=== PATIENT | female | born 1960 | race Caucasian/White ===

== ENCOUNTER 2024-09-11 19:46 | Emergency (ER) | payer MEDICARE, SELFPAY ==
--- OUTSIDE RECORDS SUMMARY | 2024-09-11 19:48 | XMS_ITS | Clinical Summary ---
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
--- OUTSIDE RECORDS SUMMARY | 2024-09-11 19:48 | XMS_ITS | Referral Summary ---
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
--- OUTSIDE RECORDS SUMMARY | 2024-09-11 19:49 | XMS_ITS | Clinical Summary ---
Author Organization [facility] Address [place], [place] [address] Care Team Providers Care Ship Laborer Name Role Phone Armand Abel MD Unavailable [phone] Benjamin rGeenfield MD Primary Care Provider [phone] Dennis Miranda MD Unavailable [phone] Allergies No known active allergies Medications ovoihsqk-wkd-sbfp -FA-lutein (Centrum Silver Women) 8 mg iron-400 mcg-300 mcg tab Take 1 Tablet by mouth once daily. Active BIOTIN ORAL Take 2 Tablets by mouth once daily. Active cetirizine (ZYRTEC) 10 mg tabletIndications :Urticaria TAKE 1 TABLET BY MOUTH ONCE DAILY. FOR ALLERGIES. 90 Tablet 3 07/19/20 22 Active hydrocortisone 1 % creamIndications: Encounter for cardioversion procedure Apply topically to affected area(s) 4 times daily if needed (cardioversio n procedure). 03/11/20 24 Active rosuvastatin (CRESTOR) 10 mg tabletIndications :HDL lipoprotein deficiency Take 1 Tablet (10 mg) by mouth once daily. 90 Tablet 3 04/22/20 24 Active rivaroxaban (Xarelto) 20 mg tabletIndications :New onset a-fib (HC) TAKE 1 TABLET BY MOUTH EVERY DAY WITH EVENING MEAL 90 Tablet 2 05/04/20 24 Active methIMAzole (TAPAZOLE) 10 mg tabletIndications :Graves disease Take 2 tablets in the morning and 2 tablets night. 360 Tablet 3 06/21/20 24 Active albuterol HFA (PRO-AIR; VENTOLIN; PROVENTIL) 90 mcg/actuation inhalerIndication s:Mild intermittent asthma in adult without complication,Bron chitis Inhale 1-2 Puffs by mouth every 4 hours if needed for Shortness of Breath 1st choice. 18 g 3 07/20/20 24 Active amLODIPine (NORVASC) 10 mg tabletIndications :Primary hypertension Take 1 Tablet (10 mg) by mouth once daily. For blood pressure. 90 Tablet 3 07/20/20 24 Active atenoloL (TENORMIN) 25 mg tabletIndications :Hyperthyroidism Take 1 Tablet (25 mg) by mouth once daily. 90 Tablet 3 07/20/20 24 Active famotidine (PEPCID) 20 mg tabletIndications :GERD without esophagitis TAKE 1 TABLET BY MOUTH ONCE DAILY. FOR REFLUX. 90 Tablet 3 07/20/20 24 Active furosemide (LASIX) 20 mg tabletIndications :Primary hypertension TAKE 1 TABLET BY MOUTH ONCE DAILY. FOR BLOOD PRESSURE/FLUI D. 90 Tablet 3 07/20/20 24 Active losartan (COZAAR) 100 mg tabletIndications :Primary hypertension Take 1 Tablet (100 mg) by mouth once daily. For blood pressure. 90 Tablet 3 07/20/20 24 Active montelukast (SINGULAIR) 10 mg tabletIndications :Mild intermittent asthma in adult without complication TAKE 1 TABLET BY MOUTH AT BEDTIME. FOR ALLERGIES AND ASTHMA. 90 Tablet 3 07/20/20 24 Active potassium chloride (K-TAB) 10 mEq extended-release tabletIndications :Primary hypertension TAKE 2 TABLETS BY MOUTH ONCE DAILY WITH A MEAL. FOR POTASSIUM DUE TO MEDS. 180 Tablet 3 07/20/20 24 Active triamcinolone (ARISTOCORT; KENALOG) 0.1 % creamIndications: Rash Apply topically to affected area(s) two times daily. 80 g 07/20/20 24 Active triamterene-hydro chlorothiazide, 37.5-25 mg, (MAXZIDE-25) 37.5-25 mg tabletIndications :Primary hypertension Take 0.5 Tablets by mouth once daily in the morning. For blood pressure. 45 Tablet 3 07/20/20 24 Active fluticasone propionate (FLOVENT) 110 mcg/Actuation inhalerIndication s:Mild intermittent asthma without complication Inhale 1 Puff by mouth two times daily. 36 g 1 07/24/20 24 Active benzonatate (TESSALON) 200 mg capsuleIndication s:Bronchitis Take 1 Capsule (200 mg) by mouth 3 times daily if needed for Cough. 21 Capsule 08/08/20 24 Active CPAPIndications:O bstructive sleep apnea RESMED CPAP (E0601) machine for home use at pressure: 5-15cmw, Choice of mask (A7030 or A7034) w/full face cushion (A7031) x1/mo, nasal cushion (A7032) x2/mo, or nasal pillows (A7033) x 2/mo; Length of Need: 99 months; Frequency of use: Daily 1 Each 09/09/19 25 Active CPAPIndications:O bstructive sleep apnea RESMED CPAP (E0601) machine for home use at pressure: 5-15cmw, Choice of mask (A7030 or A7034) w/full face cushion (A7031) x1/mo, nasal cushion (A7032) x2/mo, or nasal pillows (A7033) x 2/mo; Length of Need: 99 months; Frequency of use: Daily 1 Each 06/08/20 24 025 Discontinu ed(Reorder (E-cancel not sent)) predniSONE (DELTASONE) 20 mg tabletIndications :Bronchitis Take 1 Tablet (20 mg) by mouth once daily with a meal for 5 days. 5 Tablet 08/08/20 24 024 predniSONE (DELTASONE) 20 mg tabletIndications :Bronchitis Take 1 Tablet (20 mg) by mouth once daily with a meal for 5 days. 5 Tablet 08/08/20 24 024 Active Problems Problem Noted Date Diagnosed Date PAF (paroxysmal atrial fibrillation) 02/16/2024 Overview (02/16/2024): January 2024: New atrial fibrillation. Started on xarleto and continued on Atenolol. Elevated serum creatinine 07/22/2021 Overview (07/22/2021): July 2021: Creatinine: 1.24, GFR 44. Hyperthyroidism 06/03/2020 Overview (09/04/2022): May 2020: hyperthyroidism with thyroid enlargement on left side. Saw Dr. Abel. - 24-hour uptake: 63.7% (Normal range: 10-35%). Diffuse radiotracer uptake throughout the thyroid gland suspicious for Graves' disease without hot/cold nodule- no indication for nodule biopsy, since the nodules are all part of the overactive gland -start methimazole 06/13/2020 Results for PATY NEIL ( ) as of 07/22/2021 11:46 Ref. Range 01/03/2021 11:27 04/17/2021 11:23 07/19/2021 17:11 TSH Latest Ref Range: 0.35 - 4.94 uIU/mL <0.01 (L) 2.31 <0.01 (L) T4,FREE Latest Ref Range: 0.70 - 1.80 ng/dL 2.10 (H) 0.63 (L). Methimazole reduced from 30 to 20 mg per day 2.18 (H). Methimazole raised back to 30 mg per day T3,TOTAL Latest Ref Range: 35 - 193 ng/dL 201 (H) 04/2022 on methimazole 30 mg daily. TSH (uIU/mL) Date Value 05/07/2022 5.17 (H) dose reduced to 10 mg twice daily Enlarged thyroid 06/03/2020 Overview (06/03/2020): May 2020: enlarged left side of thyroid. SID 04/29/2006 AHI-136 09/23/2014 Elevated fasting blood sugar 08/18/2014 Overview (07/22/2024): July 2014: Fasting 116, August 2015: Fasting blood sugar 119. Pre-diabetes class again ordered ( was ordered in 2013 and Patient did not go). Jun 2022: Fasting 124. Needs recheck. July 2022: Repeat Fasting 131 and Hemoglobin A1c 5.4. So monitor. Jun 2023: Fasting 133, Hemoglobin A1c 5.6. July 2024: Fasting 133, Hemoglobin 5.6. Hypokalemia 02/23/2011 Pes planus 03/10/2010 Iron deficiency anemia secondary to blood loss ( chronic) 02/01/2010 Overview (06/03/2020): Menorrhagia- 01/26 Hemoglobin low- studies suggest iron deficiency, continue iron supplement recommended Recheck 6 months May 2020: Hemoglobin 10.4, ferritin high. Mild intermittent asthma without complication Overview (08/02/2018): 07/06/2011 ATAQ/Asthma Action plan completed. Continue flovent PRN and albuterol PRN. 04/02/2012 ATAQ/Asthma Action plan completed. 10/29/2012 ATAQ/Asthma Action plan completed. 07/31/2013 ATAQ/Asthma Action plan completed. July 2018: ATAQ 0. removing flovent as she is not using. 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 Starting Weight [employer] Sep 2015. Primary hypertension Overview (07/24/2016): Jul 2016: changed hydrochlorothiazide 12.5mg twice daily to hydrochlorothiazide/triamterene combo twice daily. PAIN IN JOINT, ANKLE/FOOT GERD without esophagitis Overview (08/01/2013): endoscopy Apr 2006. Mar 2012: try to taper off nexium and add famotidine if possible, restart nexium if symptoms not controlled. 2013: needed to go back to nexium, famotidine, but plans to try taper again, may need PA for nexium vs other proton pump inhibitor. Resolved Problems Problem Noted Date Diagnosed Date Resolved Date CHEST PAIN 04/05/2001 03/28/2006 Headache(784.0) 12/27/2006 Encounters Date Type Department Care Team Description 09/11/2024 6:00 PM PHARMACY PICKING TECH Ancillary Procedure [facility] [address] [facility] [address] [place] [address] Arrived 09/11/2024 5:55 PM PHARMACY PICKING TECH Ancillary Procedure [facility] [address] [facility] [address] [place] [address] Arrived 09/11/2024 5:05 PM PHARMACY PICKING TECH Office Visit [facility] [address] [facility] [address] [place] [address] Debi Gamboa NP Abdominal Pain (lower abdominal pain on right side x5days, was checked for a uti x3days. pain does wrap around to the back as well. Pain is a constant ache that is worsening, since her last visit she is now having constipation, denies blood in stool. ) 09/11/2024 Travel 09/09/2024 2:00 PM PHARMACY PICKING TECH Ancillary Procedure [facility] [address] [place] [address] Arrived 09/09/2024 1:00 PM PHARMACY PICKING TECH Office Visit [facility] [address] [place] [address] Kuldip Saul MD Sleep Follow-up 09/08/2024 9:40 AM PHARMACY PICKING TECH Office Visit [facility] [address] [place] [address] Vinicio Zapata MD Back Pain 09/08/2024 Travel 09/07/2024 Travel 09/04/2024 12:35 PM PHARMACY PICKING TECH Office Visit [facility] [address] [place] [address] Benjamin Greenfield MD Preoperative Exam (DOS: 10/01/2024 [facility]/Thyroidecto for diagnosis of Graves Disease/Dr Matty Zimmerman) 09/04/2024 Travel 08/31/2024 Travel 08/08/2024 9:10 AM PHARMACY PICKING TECH Office Visit [facility] [address] [facility] [address] [place] [address] Caitlyn Call PA Cough 08/08/2024 Orders Only [facility] [address] [place] [phone] Caitlyn Call PA <No scans attached> 08/08/2024 Telephone [facility] [address] [place] [address] Caitlyn Call PA Medication Management (predniSONE ) 08/08/2024 Travel 08/06/2024 12:20 PM PHARMACY PICKING TECH Telemedicine [facility] [address] [place] [address] Maile Del Valle MD Cough; Acid Indigestion; Telehealth 08/05/2024 Travel 07/27/2024 Orders Only [facility] [address] [place] [address] Benjamin Greenfield MD Lab 07/24/2024 Telephone [facility] [address] [place] [phone] Matty Zimmerman MD Surgery Scheduled (Total thyroidectomy) 07/23/2024 9:20 AM PHARMACY PICKING TECH Office Visit [facility] [address] [place] [address] Matty Zimmerman MD Consult (Enlarged thyroid, nodules, Graves) 07/23/2024 Travel 07/21/2024 Telephone [facility] [address] [place] [address] Benjamin Greenfield MD Medication Management (fluticasone propionate (FLOVENT DISKUS) 100 mcg/actuation inhaler/) 07/20/2024 1:40 PM PHARMACY PICKING TECH Ancillary Procedure [facility] [address] [place] [address] 07/20/2024 12:35 PM PHARMACY PICKING TECH Office Visit [facility] [address] [place] [address] Benjamin Greenfield MD Medicare WELCOME Visit (AGE 63) 07/19/2024 Travel 07/18/2024 Travel 06/21/[address] [facility] [address] [place] [address] Armand Abel MD Results 06/21/2024 Orders Only [facility] [address] [place] [address] Armand Abel MD <No scans attached> 06/18/2024 8:20 AM CDT Office Visit [facility] [address] [place] [address] Armand Abel MD Follow Up (3 months graves disease ) 06/18/2024 Travel 06/13/2024 Travel from Last 3 Months Immunizations Name Administration Dates Next Due AMB Influenza, IIV4 PF (=>6 mos Flulaval,Fluzone Fluarix)(Flu Clinic Only) 06/19/2018,05/17/2017 COVID-19 vaccine (Moderna 100mcg/0.5mL) PF, MDV 06/20/2021 COVID-19 vaccine (Moderna 50mcg/0.5mL) 12YO+ BIVALENT PF, MDV 07/09/2022 INFLUENZA, IIV3 PF (AGE >= 6 MO) 05/18/2024 Influenza A (H1N1), Inactiva fermin (Age >=3 Years) 09/22/2009 Influenza, IIV3 (Age >=3 years) 05/13/20 14,05/14/2013,05/08/2012,2010,05/26/2010,06/24/2006,05/19/2003 Influenza, IIV4 05/20/2023, 2,04/20/2021,2019,05/15/2019,05/17/2017,05/29/2016,0 05/10/2015 Pneumococcal Conj 20-valent (Prevnar 20) 08/02/2023 Tdap 01/19/2010 Zoster (Shingrix-RZV, recombinant) 12/15/2019, Family History Medical History Relation Name Comments Heart Disease Brother 1 Heart Disease Brother 2 Heart Disease Mother bypass in 60's 2nd MS in 80's Genetic Other 1 glaucoma - fath er~lazy eye - sister Genetic Other 2 mother MS in he r 60's, HTN~brother CAD, stent placement age 42~sister DM2, HTN ~glaucoma - father~lazy eye - sister Genetic Other 3 mother MS in he r 60's, HTN~Father had RA, daughter had JRA~brother CAD, stent placement age 42~sister DM2, HTN ~glaucoma - father~lazy eye - sister Heart Disease Sister 1 Heart Disease Sister 2 Graves' disease Sister 3 Graves' disease Sister 4 Anesthesia Problem No Family History Blood Disease No Family History Cancer-breast No Family History Relation Name Status Comments Brother 1 Brother 2 Alive Mother Other 1 Other 2 Other 3 Sister 1 Sister 2 Alive Sister 3 Alive Sister 4 Alive Social History Tobacco Use Types Packs/Day Years Used Date Smoking Tobacco: Never Passive Smoke Exposure: Never Smokeless Tobacco: Never Tobacco Cessation:Counseling Given: Not Answered Alcohol Use Standard Drinks/Week Comments No 0 (1 standard drink = 0.6 oz pur e alcohol) PHQ-2 Answer Date Recorded PHQ-2 TOTAL SCORE 0 07/20/2024 Social Connections Answer Date Recorded Do you often feel lonely or isolated from those around you? 0 02/14/2024 Financial Resource Strain Answer Date R ecorded Difficulty of Paying Living Expenses 3 02/14/2024 Difficulty of Paying Living Expenses Not on file 02/14/2024 Food Insecurity Answer Date Recorded Do you worry your food will run out before you are able to buy more? 1 02/14/2024 Transportation Needs Answer Date Record ed Does lack of transportation keep you from medica l appointments? 1 02/14/2024 Does lack of transportation keep you from work, meetings or getting things that you need? 1 02/14/2024 Housing Stability Answer Date Recorded What is your housing situation today? 1 02/14/2024 Interpersonal Safety Answer Date Record ed Are you being hit, kicked, p ushed or yelled at (see row info)? No 03/11/2024 Interpersonal Safety Abuse 12 - 18 Not on file 03/11/2024 Interpersonal Safety Ambulatory Vulnerability No t on file 03/11/2024 Utilities Answer Date Recorded Do you have trouble paying f or utilities (for example, heat, electricity, water, phone)? 1 02/14/2024 Comments No Sex and Gender Information Value Date Recorded Sex Assigned at Not on file Legal Sex Female 5:38 AM PHARMACY PICKING TECH Gender Identity Not on file Sexual Orientation Not on file Obstetrics History Last Filed Vital Signs Vital Sign Reading Time Taken Comments Blood Pressure 140/63 09/11/2024 5:25 PM PHARMACY PICKING TECH Pulse 99 09/11/2024 5:25 PM PHARMACY PICKING TECH Temperature 36.2 C (97.1 F) 09/11/2024 5:25 PM PHARMACY PICKING TECH Respiratory Rate 22 09/11/2024 5:25 PM PHARMACY PICKING TECH Oxygen Saturation 96% 09/11/2024 5:25 PM PHARMACY PICKING TECH Inhaled Oxygen Concentration - - Weight 131.6 kg (290 lb 3.2 oz) 025 12:53 PM PHARMACY PICKING TECH Height 161.4 cm (5' 3.54) 09/09/2024 1 2:53 PM PHARMACY PICKING TECH Body Mass Index 50.54 09/09/2024 12:53 PM PHARMACY PICKING TECH Plan of Treatment Upcoming Encounters Date Type Department Care Team (Latest Contact Info) Description 10/01/2024 7:20 AM PHARMACY PICKING TECH Hospital Encounter [facility] [address] [place] [address] Matty Zimmerman MD [address] [facility] [address] [place] [address] 10/01/2024 7:20 AM PHARMACY PICKING TECH - 10/01/2024 9:14 AM PHARMACY PICKING TECH Surgery [facility] [address] [place] [address] Matty Zimmerman MD [address] [facility] [address] [facility] [address] [place], [place] [id number] Total thyroidectomy 11/05/2024 9:10 AM CDT Office Visit [facility] [address] [facility] [address] [place], [place] [phone] Armand Abel MD [address] [facility] [address] [facility] [address] [place] [address] Scheduled Procedures Name Priority Associated Diagnoses Date/Ti me THYROIDECTOMY Tier 4 Graves disease 10/01/2024 7:20 AM PHARMACY PICKING TECH Health Maintenance Due Date Last Done Comments RSV vaccine for adults or (1 - Risk 60-74 years 1-dose series) 2019 Tetanus booster 01/20/2020 01/19/2010 DEXA/DXA scan for age 65+ 2024 Pap test for age 21-65 10/07/2024 , 10/07/2019, 11/13/2002, Additional history exists Mammogram for age 45-75 07/20/2025 07/20/20, 07/18/2023, 05/11/2021, Additional history exists Fecal testing non-DNA (FIT,FOBT,iFOBT) for age 45-75 07/21/2025 07/21/2024, 07/18/2023, 07/10/2022, Additional history exists Medicare Wellness for age 65+ 07/21/2025 07/20/2024 Depression screening for age 12+ 07/24/2025 07/24/2024, 07/23/2024, 07/21/2024, Additional history exists HIV for age 15-65 2025 Postponed from 1974 (Patient discretion) BMI (ht and wt on same day) for age 18+ 09/09/2025 09/09/2024, 09/08/2024, 07/20/2024, Additional history exists Lipids for age 45-75 07/20/2029 07/20/2024, 07/18/2023, 06/01/2020, Additional history exists Tdap Completed 01/19/2010 Hepatitis C screening for age 18-79 Completed 06/30/2019 Zoster (shingles) series for age 50+ Completed 12/15/2019, 06/30/2019 Pneumococcal series for age 50+ Completed 08/02/2023 COVID-19 vaccine series Completed 05/18/20, 08/02/2023, 07/09/2022, Additional history exists Influenza for age 65+ Completed 05/18/2024 , 05/20/2023, 05/07/2022, Additional history exists Procedures Procedure Name Priority Date/Time Associated Diagnosis Comments XR ABDOMEN 2 VIEW FLAT AND UPRIGHT OR DECUBITUS STAT 09/11/2024 6:25 PM PHARMACY PICKING TECH Flank pain Abdominal pain, RLQ (right lower quadrant) XR SPINE LUMBAR 3 VIEWS STAT 09/11/2024 6:24 PM PHARMACY PICKING TECH Flank pain Abdominal pain, RLQ (right lower quadrant) AK BLOOD COUNT COMPLETE AUTO&AUTO DIFRNTL WBC Routine 09/11/2024 6:01 PM PHARMACY PICKING TECH Flank pain Abdominal pain, RLQ (right lower quadrant) UA W/ SEDIMENT EXAM REFLEXED PER CRITERIA STAT 09/11/2024 6:00 PM PHARMACY PICKING TECH Flank pain Abdominal pain, RLQ (right lower quadrant) URINALYSIS MICROSCOPIC Routine 09/08/2024 10:04 AM PHARMACY PICKING TECH Flank pain URINE CULTURE Routine 09/08/2024 10:04 AM PHARMACY PICKING TECH Flank pain COMP METABOLIC PANEL Routine 09/08/2024 9:59 AM PHARMACY PICKING TECH Flank pain URINALYSIS MACROSCOPIC - [facility] ONLY POC DIP ([facility]) Routine 09/08/2024 9:58 AM PHARMACY PICKING TECH Flank pain HEMOGLOBIN Routine 09/04/2024 1:15 PM PHARMACY PICKING TECH Preoperative examination POTASSIUM Routine 09/04/2024 1:15 PM PHARMACY PICKING TECH Primary hypertension OCCULT BLOOD IFOBT STOOL Routine 07/21/2024 9:00 AM PHARMACY PICKING TECH Screening for colon cancer TSH Routine 07/20/2024 2:41 PM PHARMACY PICKING TECH Graves disease T4,FREE Routine 07/20/2024 2:41 PM PHARMACY PICKING TECH Graves disease HEPATIC FUNCTION PANEL Routine 07/20/2024 2:41 PM PHARMACY PICKING TECH Abnormal liver function test LIPID PANEL W REFLEX MEASURED LDL Routine 07/20/2024 2:39 PM PHARMACY PICKING TECH Hypercholesterolemia HEMOGLOBIN A1C Routine 07/20/2024 2:39 PM PHARMACY PICKING TECH Elevated fasting glucose BASIC METABOLIC PANEL Routine 07/20/2024 2:39 PM PHARMACY PICKING TECH Primary hypertension XR MAMMO CARLA BILAT SCREEN Routine 07/20/2024 2:09 PM PHARMACY PICKING TECH Encounter for screening mammogram for malignant neoplasm of breast TSH Routine 06/18/2024 8:57 AM CDT Hyperthyroidism T4,FREE Routine 06/18/2024 8:57 AM CDT Hyperthyroidism WHITE BLOOD COUNT Routine 06/18/2024 8:5 7 AM CDT Hyperthyroidism ALT (SGPT) Routine 06/18/2024 8:57 AM CDT Hyperthyroidism HEDDLER TIER THIN PREP PAP SCREEN IMAGED Routine 10/07/2019 4:00 PM PHARMACY PICKING TECH Pap smear for cervical cancer screening ANTI HCV Routine 06/30/2019 3:56 PM PHARMACY PICKING TECH Encounter for hepatitis C screening test for low risk patient from Last 3 Months or Most Recently Relevant to Health Maintenance Results * XR ABDOMEN 2 VIEW FLAT AND UPRIGHT OR DECUBITUS (09/11/2024 6:25 PM PHARMACY PICKING TECH) Anatomical Region Laterality Modality Abdomen Digital Radiogra phy 09/11/2024 7:11 PM PHARMACY PICKING TECH Impressions 09/11/2024 7:11 PM PHARMACY PICKING TECH No findings to explain the clinical history. Dictated by Blas Mckeon MD @ 09/11/2024 7:11:24 PM (Electronically Signed) Narrative 09/11/2024 7:11 PM PHARMACY PICKING TECH For Patients: As a result of the Cures Act, medical imaging exams and procedure reports are released immediately into your electronic medical record. You may view this report before your referring provider. If you have questions, please contact your health care provider. INDICATION: Flank pain, not otherwise described. Right lower quadrant pain. History of cholelithiasis. COMPARISON: None available. Reference is made to the report of an abdominopelvic CT dated 10/09/2019. TECHNIQUE: Two views of the abdomen (3 images) FINDINGS: Nondilated bowel. No significant colonic fecal loading. No significant incidental calcifications. On the AP supine abdominal radiograph centered over the left lower quadrant there are 2 subcentimeter opacities, 1 oval in 1 round, projecting just above the pelvis which are mobile as they overlie the sacrum on the upright abdominal radiograph. These are likely within the bowel. The visualized skeleton demonstrates no significant incidental findings. Procedure Note Blas Mckeon MD - 09/11/2024 For Patients: As a result of the Cures Act, medical imagingexams and procedure reports are released immediately into your electronicmedical record. You may view this report before your referring provider.If you have questions, please contact your health care provider. INDICATION: Flank pain, not otherwise described. Right lower quadrant pain. History of cholelithiasis. COMPARISON: None available. Reference is made to the report of an abdominopelvic CTdated 10/09/2019. TECHNIQUE: Two views of the abdomen (3 images) FINDINGS: Nondilated bowel. No significant colonic fecal loading. No significant incidental calcifications. On the AP supine abdominalradiograph centered over the left lower quadrant there are 2 subcentimeteropacities, 1 oval in 1 round, projecting just above the pelvis which aremobile as they overlie the sacrum on the upright abdominal radiograph.These are likely within the bowel. The visualized skeleton demonstrates no significant incidental findings. IMPRESSION: No findings to explain the clinical history. Dictated by Blas Mckeon MD @ 09/11/2024 7:11:24 PM (Electronically Signed) Debi Gamboa NP GENERAL IMAGING Final Result * XR SPINE LUMBAR 3 VIEWS (09/11/2024 6:24 PM PHARMACY PICKING TECH) Anatomical Region Laterality Modality LUMBAR SPINE Digital Radiogra phy 09/11/2024 7:12 PM PHARMACY PICKING TECH Impressions 09/11/2024 7:12 PM PHARMACY PICKING TECH No specific findings to explain the clinical history. Chronic multilevel lumbar spondylosis described above. Dictated by Blas Mckeon MD @ 09/11/2024 7:12:48 PM (Electronically Signed) Narrative 09/11/2024 7:12 PM PHARMACY PICKING TECH For Patients: As a result of the Cures Act, medical imaging exams and procedure reports are released immediately into your electronic medical record. You may view this report before your referring provider. If you have questions, please contact your health care provider. INDICATION: Flank pain, not otherwise specified. Right lower quadrant pain. COMPARISON: 02/14/2021 TECHNIQUE: 3 views. FINDINGS: Normal alignment. Well maintained vertebral body heights. Endplate eburnation and anterior vertebral body endplate osteophytes at all levels consistent with chronic degenerative spondylosis. L4-L5 and L5-S1 facet joint osteoarthrosis. Loss of intervertebral disc space height at L5-S1. Normal paraspinal soft tissues. Procedure Note Blas Mckeon MD - 09/11/2024 For Patients: As a result of the Cures Act, medical imagingexams and procedure reports are released immediately into your electronicmedical record. You may view this report before your referring provider.If you have questions, please contact your health care provider. INDICATION: Flank pain, not otherwise specified. Right lower quadrant pain. COMPARISON: 02/14/2021 TECHNIQUE: 3 views. FINDINGS: Normal alignment. Well maintained vertebral body heights. Endplate eburnation and anteriorvertebral body endplate osteophytes at all levels consistent with chronicdegenerative spondylosis. L4-L5 and L5-S1 facet joint osteoarthrosis. Loss of intervertebral disc space height at L5-S1. Normal paraspinal soft tissues. IMPRESSION: No specific findings to explain the clinical history. Chronic multilevellumbar spondylosis described above. Dictated by Blas Mckeon MD @ 09/11/2024 7:12:48 PM (Electronically Signed) Debi Gamboa NP GENERAL IMAGING Final Result * (ABNORMAL) CBC & DIFF [[id number]] (09/11/2024 6:01 PM PHARMACY PICKING TECH) WHITE BLOOD CELL COUNT 11.2(H) 3.8 - 10.8 Thousand/u L [facility] (Urgent Care) RED BLOOD CELL COUNT 5.04 3.80 - 5.10 Million/uL [facility] (Urgent Care) HEMOGLOBIN 13.5 11.7 - 15.5 g/dL [facility] (Urgent Care) HEMATOCRIT 40.6 35.0 - 45.0 % [facility] (Urgent Care) MCV 80.6 80.0 - 100.0 fL [facility] (Urgent Care) MCH 26.8(L) 27.0 - 33.0 pg [facility] (Urgent Care) MCHC 33.3 32.0 - 36.0 g/dL [facility] (Urgent Care) Comment: For adults, a slight decrease in the calculated MCHC value (in the range of 30 to 32 g/dL) is most likely not clinically significant; however, it should be interpreted with caution in correlation with other red cell parameters and the patient's clinical condition. RDW 15.5(H) 11.0 - 15.0 % [facility] (Urgent Care) PLATELET COUNT 246 140 - 400 Thousand/u L [facility] MPV 9.4 7.5 - 12.5 fL [facility] ABSOLUTE NEUTROPHILS 7,874(H) 1,500 - 7,800 cells/uL [facility] (Urgent Care) ABSOLUTE LYMPHOCYTES 2,542 850 - 3,900 cells/uL [facility] (Urgent Care) ABSOLUTE MONOCYTES 706 200 - 950 cells/uL [facility] (Urgent Care) ABSOLUTE EOSINOPHILS 56 15 - 500 cells/uL [facility]) ABSOLUTE BASOPHILS 22 0 - 200 cells/uL [facility]) NEUTROPHILS 70.3 % [facility] LYMPHOCYTES 22.7 % [facility] ([facility]) MONOCYTES 6.3 % [facility] (Urgent Care) EOSINOPHILS 0.5 % [facility] ([facility]) BASOPHILS 0.2 % [facility] (Urgent Care) Blood BLOOD SPECIMEN / Unknown 09/11/2024 6:01 PM PHARMACY PICKING TECH 09/11/2024 6:02 PM PHARMACY PICKING TECH us Debi Gamboa NP HEMATOLOGY Final Result [facility] [address] [place] [address], [facility] (Urgent Care) [address] [place] [address] * (ABNORMAL) UA W/ SEDIMENT EXAM REFLEXED PER CRITERIA [[id number]] (09/11/2024 6:00 PM PHARMACY PICKING TECH) COLOR YELLOW YELLOW [facility]) APPEARANCE CLEAR CLEAR [facility]) SPECIFIC GRAVITY < OR = 1.005 1.001 - 1.035 [facility] ([facility]gent Care) PH 6.0 5.0 - 8.0 [facility] ([facility]gent Care) GLUCOSE NEGATIVE NEGATIVE [facility] ([facility]gent Care) BILIRUBIN NEGATIVE NEGATIVE [facility] ([facility]gent Care) KETONES NEGATIVE NEGATIVE [facility] (Urgent Care) OCCULT BLOOD NEGATIVE NEGATIVE [facility] ([facility]gent Care) PROTEIN NEGATIVE NEGATIVE [facility] ([facility]gent Care) NITRITE NEGATIVE NEGATIVE [facility] ([facility]gent Care) LEUKOCYTE ESTERASE TRACE(A) NEGATIVE [facility] ([facility]gent Care) WBC UA 0-5 < OR = 5 /HPF [facility] ([facility]gent Care) RBC UA NONE SEEN < OR = 2 /HPF [facility] ([facility]gent Care) SQUAMOUS EPITHELIAL CELLS UA 0-5 < OR = 5 /HPF [facility] ([facility]gent Care) BACTERIA UA NONE SEEN NONE SEEN /HPF [facility] ([facility]) NOTE UA [facility] ([facility]gent Care) Comment: This urine was analyzed for the presence of WBC, RBC, bacteria, casts, and other formed elements. Only those elements seen were reported. Urine URINE SPECIMEN / Unknown 09/11/2024 6:00 PM PHARMACY PICKING TECH 09/11/2024 6:01 PM PHARMACY PICKING TECH us Debi Gamboa NP URINE Final Result [facility] [address] [place] [address], [facility] (Urgent Care) [address] [place] [address] * URINALYSIS MICROSCOPIC (09/08/2024 10:04 AM PHARMACY PICKING TECH) RBC 0-2 0-2, None Seen /HPF 09/08/2024 4:15 PM PHARMACY PICKING TECH [facility] WBC 0-2 0-2, 3-5, None Seen /HPF 09/08/2024 4:15 PM PHARMACY PICKING TECH [facility] BACTERIA None Seen None Seen, Rare, Few Bacteria/ HPF 09/08/2024 4:15 PM PHARMACY PICKING TECH [facility] EPITHELIAL CELLS None Seen None Seen, Few Epi/HPF 09/08/2024 4:15 PM PHARMACY PICKING TECH [facility] HYALINE CASTS 0-2 0-2, 3-5 /LPF 09/08/2024 4:15 PM PHARMACY PICKING TECH [facility] Urine URINE SPECIMEN / Unknown Non-Blood / Unknown 09/08/2024 10:04 AM PHARMACY PICKING TECH 09/08/2024 10:04 AM PHARMACY PICKING TECH Vinicio Zapata MD URINE Final Result Performing Organization Address City/[facility]/ZIP Co de Phone Number [facility] [address] [phone], [place] * URINE CULTURE (09/08/2024 10:04 AM PHARMACY PICKING TECH) CULTURE <10,000 CFU/mL multiple organisms 09/09/2024 1:42 PM PHARMACY PICKING TECH [facility] Urine URINE SPECIMEN / Unknown Non-Blood / Unknown 09/08/2024 10:04 AM PHARMACY PICKING TECH 09/08/2024 10:04 AM PHARMACY PICKING TECH us Vinicio Zapata MD MICROBIOLOGY Final Result Performing Organization Address [facility]/ZIP Co de Phone Number [facility] [address] [place] [address], [place] * (ABNORMAL) COMP METABOLIC PANEL (09/08/2024 9:59 AM PHARMACY PICKING TECH) Pathologist [facility] GLUCOSE 124(H) 65 - 99 mg/dL [facility] Comment: Fasting reference interval For someone without known diabetes, a glucose value between 100 and 125 mg/dL is consistent with prediabetes and should be confirmed with a follow-up test. UREA NITROGEN (BUN) 12 7 - 25 mg/dL [facility] CREATININE 0.79 0.50 - 1.05 mg/dL [facility] EGFR 83 > OR = 60 mL/min/1. 73m2 [facility] BUN/CREATININE RATIO SEE NOTE: 6 - 22 (calc) [facility] Comment: Not Reported: BUN and Creatinine are within reference range. SODIUM 141 135 - 146 mmol/L [facility] POTASSIUM 3.6 3.5 - 5.3 mmol/L [facility] CHLORIDE 104 98 - 110 mmol/L [facility] CARBON DIOXIDE 22 20 - 32 mmol/L [facility] CALCIUM 9.3 8.6 - 10.4 mg/dL [facility] PROTEIN, TOTAL 6.9 6.1 - 8.1 g/dL [facility] ALBUMIN 4.1 3.6 - 5.1 g/dL [facility] GLOBULIN 2.8 1.9 - 3.7 g/dL (calc) [facility] ALBUMIN/GLOBULIN RATIO 1.5 1.0 - 2.5 (calc) [facility] BILIRUBIN, TOTAL 0.4 0.2 - 1.2 mg/dL [facility] ALKALINE PHOSPHATASE 110 37 - 153 U/L [facility] AST 21 10 - 35 U/L [facility] ALT 20 6 - 29 U/L [facility] Blood BLOOD SPECIMEN / Unknown 09/08/2024 9:59 AM PHARMACY PICKING TECH 09/08/2024 9:59 AM PHARMACY PICKING TECH us Vinicio Zapata MD CHEMISTRY Final Result [facility] [address] [place] [address], [place] [phone] [facility] [address] [place] [address] * (ABNORMAL) POCT Urinalysis Dipstick Only (09/08/2024 9:58 AM PHARMACY PICKING TECH) PH 7.0 5.0 - 8.0 [facility] SPECIFIC GRAVITY 1.015 1.001 - 1.035 [facility] GLUCOSE NEGATIVE NEGATIVE [facility] BILIRUBIN NEGATIVE NEGATIVE [facility] KETONES NEGATIVE NEGATIVE [facility] OCCULT BLOOD NEGATIVE NEGATIVE [facility] PROTEIN NEGATIVE NEGATIVE [facility] NITRITE NEGATIVE NEGATIVE [facility] LEUKOCYTE ESTERASE TRACE(A) NEGATIVE [facility] Urine URINE SPECIMEN / Unknown 09/08/2024 9:58 AM PHARMACY PICKING TECH 09/08/2024 9:58 AM PHARMACY PICKING TECH us Vinicio Zapata MD URINE Final Result Performing Organization Address [facility]/ZIP Co de Phone Number [facility] [address] [place] [address], [facility] [address] [place] [address] * HEMOGLOBIN (09/04/2024 1:15 PM PHARMACY PICKING TECH) HEMOGLOBIN 13.5 11.7 - 15.5 g/dL [email or web address] Blood BLOOD SPECIMEN / Unknown 09/04/2024 1:15 PM PHARMACY PICKING TECH 09/04/2024 1:15 PM PHARMACY PICKING TECH us Benjamin Greenfield MD HEMATOLOGY Final Res ult [facility] [address] [place] [address], [facility] [address] [place] [address] * (ABNORMAL) POTASSIUM (09/04/2024 1:15 PM PHARMACY PICKING TECH) POTASSIUM 3.4(L) 3.5 - 5.3 mmol/L [facility] Blood BLOOD SPECIMEN / Unknown 09/04/2024 1:15 PM PHARMACY PICKING TECH 09/04/2024 1:15 PM PHARMACY PICKING TECH Benjamin Greenfield MD CHEMISTRY Final Res ult [facility] [address] [place] [address], [facility] [address] [place] [address] * OCCULT BLOOD IFOBT STOOL [[id number]] (07/21/2024 9:00 AM PHARMACY PICKING TECH) STOOL BLOOD ,IFOBT Negative Negative 07/29/2024 3:47 PM PHARMACY PICKING TECH [facility] Stool STOOL SPECIMEN / Unknown Non-Blood / Unknown 07/21/2024 9:00 AM PHARMACY PICKING TECH 07/27/2024 11:35 PM PHARMACY PICKING TECH Benjamin Greenfield MD LABORATORY Final Res ult [facility] [address] [place] [address], * (ABNORMAL) TSH (07/20/2024 2:41 PM PHARMACY PICKING TECH) Only the most recent of2 resultswithin the time period is included. TSH 0.01(L) 0.40 - 4.50 mIU/L [facility] Blood BLOOD SPECIMEN / Unknown 07/20/2024 2:41 PM PHARMACY PICKING TECH 07/20/2024 2:41 PM PHARMACY PICKING TECH Armand Abel MD CHEMISTRY Final Resu lt Performing Organization Address [facility]/ZIP Co de Phone Number [facility] [address] [place] [address], [place] [phone] [facility] [address] [place] [address] * (ABNORMAL) T4,FREE (07/20/2024 2:41 PM PHARMACY PICKING TECH) Only the most recent of2 resultswithin the time period is included. T4, FREE 2.2(H) 0.8 - 1.8 ng/dL [facility] Blood BLOOD SPECIMEN / Unknown 07/20/2024 2:41 PM PHARMACY PICKING TECH 07/20/2024 2:41 PM PHARMACY PICKING TECH Armand Abel MD CHEMISTRY Final Resu lt Performing Organization Address [facility] Co de Phone Number [facility] [address] [place] [address], [place] [phone] [email or web address] [address] [place] [address] * (ABNORMAL) HEPATIC FUNCTION PANEL (07/20/2024 2:41 PM PHARMACY PICKING TECH) PROTEIN, TOTAL 6.5 6.1 - 8.1 g/dL [facility] ALBUMIN 3.8 3.6 - 5.1 g/dL [facility] GLOBULIN 2.7 1.9 - 3.7 g/dL (calc) [facility] ALBUMIN/GLOBULIN RATIO 1.4 1.0 - 2.5 (calc) [facility] BILIRUBIN, TOTAL 0.6 0.2 - 1.2 mg/dL [facility] BILIRUBIN, DIRECT 0.2 < OR = 0.2 mg/dL [facility] BILIRUBIN, INDIRECT 0.4 0.2 - 1.2 mg/dL (calc) [facility] ALKALINE PHOSPHATASE 99 37 - 153 U/L [facility] AST 27 10 - 35 U/L [facility] ALT 33(H) 6 - 29 U/L [facility] Blood BLOOD SPECIMEN / Unknown 07/20/2024 2:41 PM PHARMACY PICKING TECH 07/20/2024 2:41 PM PHARMACY PICKING TECH Armand Abel MD CHEMISTRY Final Resu lt Performing Organization Address [facility]/ZIP Co de Phone Number [facility] [address] [place] [address], [email or web address] [address] [place] [address] * HEMOGLOBIN A1C (07/20/2024 2:39 PM PHARMACY PICKING TECH) HEMOGLOBIN A1C 5.6 <5.7 % of total Hgb [facility] Comment: For the purpose of screening for the presence of diabetes: <5.7% Consistent with the absence of diabetes 5.7-6.4% Consistent with increased risk for diabetes (prediabetes) > or =6.5% Consistent with diabetes This assay result is consistent with a decreased risk of diabetes. Currently, no consensus exists regarding use of hemoglobin A1c for diagnosis of diabetes in children. According to [place] Diabetes Association (ADA) guidelines, hemoglobin A1c <7.0% represents optimal control in non- diabetic patients. Different metrics may apply to specific patient populations. Standards of Medical Care in Diabetes(ADA). Blood BLOOD SPECIMEN / Unknown 07/20/2024 2:39 PM PHARMACY PICKING TECH 07/20/2024 2:40 PM PHARMACY PICKING TECH Narrative [facility] - 07/21/2024 3:31 AM PHARMACY PICKING TECH FASTING:YES FASTING: YES Benjamin Greenfield MD CHEMISTRY Final Res ult Performing Organization Address City/[facility]/ZIP Co de Phone Number [facility] [address] [place] [phone], [email or web address] [address] [place] [address] * (ABNORMAL) LIPID PANEL W REFLEX MEASURED LDL (07/20/2024 2:39 PM PHARMACY PICKING TECH) CHOLESTEROL, TOTAL 132 <200 mg/dL [facility] HDL CHOLESTEROL 48(L) > OR = 50 mg/dL [facility] TRIGLYCERIDES 111 <150 mg/dL [facility] LDL-CHOLESTEROL 65 mg/dL (calc) [facility] Comment: Reference range: <100 Desirable range <100 mg/dL for primary prevention; <70 mg/dL for patients with CHD or diabetic patients with > or = 2 CHD risk factors. LDL-C is now calculated using the Frantz calculation, which is a validated novel method providing better accuracy than the Friedewald equation in the estimation of LDL-C. Bertram SS et al. WING. 2013;310(19): 0235-1527 (http://education.Zivity/faq/SMU475) CHOL/HDLC RATIO 2.8 <5.0 (calc) [facility] NON HDL CHOLESTEROL 84 <130 mg/dL (calc) [facility] Comment: For patients with diabetes plus 1 major ASCVD risk factor, treating to a non-HDL-C goal of <100 mg/dL (LDL-C of <70 mg/dL) is considered a therapeutic option. Blood BLOOD SPECIMEN / Unknown 07/20/2024 2:39 PM PHARMACY PICKING TECH 07/20/2024 2:40 PM PHARMACY PICKING TECH Narrative [facility] - 07/21/2024 5:34 AM PHARMACY PICKING TECH FASTING:YES FASTING: YES us Benjamin Greenfield MD CHEMISTRY Final Res ult [facility] [address] [address] [facility] [place] [place] [address], [email or web address] [address] [place] [address] * (ABNORMAL) BASIC METABOLIC PANEL (07/20/2024 2:39 PM PHARMACY PICKING TECH) GLUCOSE 131(H) 65 - 99 mg/dL [employer] Comment: Fasting reference interval For someone without known diabetes, a glucose value >125 mg/dL indicates that they may have diabetes and this should be confirmed with a follow-up test. UREA NITROGEN (BUN) 18 7 - 25 mg/dL [facility] CREATININE 0.85 0.50 - 1.05 mg/dL [facility] EGFR 76 > OR = 60 mL/min/1. 73m2 [facility] BUN/CREATININE RATIO SEE NOTE: 6 - 22 (calc) [facility] Comment: Not Reported: BUN and Creatinine are within reference range. SODIUM 139 135 - 146 mmol/L [facility] POTASSIUM 3.8 3.5 - 5.3 mmol/L [employer] CHLORIDE 104 98 - 110 mmol/L [employer] [facility] CARBON DIOXIDE 19(L) 20 - 32 mmol/L [facility] ELECTROLYTE BALANCE 16 7 - 17 mmol/L (calc) [facility] CALCIUM 9.2 8.6 - 10.4 mg/dL [facility] Blood BLOOD SPECIMEN / Unknown 07/20/2024 2:39 PM PHARMACY PICKING TECH 07/20/2024 2:40 PM PHARMACY PICKING TECH Narrative [facility] - 07/21/2024 5:34 AM PHARMACY PICKING TECH FASTING:YES FASTING: YES Benjamin Greenfield MD CHEMISTRY Final Res ult [facility] [address] [place] [address], [facility] [address] [place] [address] * XR MAMMO CARLA BILAT SCREEN (07/20/2024 2:09 PM PHARMACY PICKING TECH) Anatomical Region Laterality Modality BREASTS, Breast Left, Breast Right Bilateral Mammography Impressions 07/22/2024 4:01 PM PHARMACY PICKING TECH There is no radiographic evidence for malignancy. Recommend annual mammograms. MAMMOGRAM ASSESSMENT: ACR 1 Negative PATIENTS: You will also receive a letter with your examination results in an easy to read format. If you have questions about your results, please contact your referring provider. Narrative 07/22/2024 4:01 PM PHARMACY PICKING TECH For Patients: As a result of the Century Cures Act, medical imaging exams and procedure reports are released immediately into your electronic medical record. You may view this report before your referring provider. If you have questions, please contact your health care provider. XR MAMMO CARLA BILAT SCREEN [[id number]] CLINICAL HISTORY: This is an asymptomatic 63 y.o. patient. INDICATION FOR EXAM: Mammogram Screening. TECHNIQUE: CC & MLO views were obtained. This study was evaluated with the assistance of Computer-Aided Detection. Breast Tomosynthesis was used in interpretation. COMPARISON FILM: Yes 07/18/23 [facility] 05/11/21 [facility] FINDINGS: There are scattered areas of fibroglandular density. There are no dominant masses, suspicious micro calcifications or areas of architectural distortion. Benjamin Greenfield MD MAMMO Final Res ult * WHITE BLOOD COUNT (06/18/2024 8:57 AM CDT) WHITE BLOOD CELL COUNT 9.3 3.8 - 10.8 Thousand/u L [email or web address] Blood BLOOD SPECIMEN / Unknown 06/18/2024 8:57 AM CDT 06/18/2024 8:58 AM CDT Narrative [facility] - 06/19/2024 4:21 AM CDT FASTING:YES FASTING: YES us Armand Abel MD HEMATOLOGY Final Resu lt [facility] [address] [place] [address], [place] [phone] [facility] [address] [place] [address] * (ABNORMAL) ALT (SGPT) (06/18/2024 8:57 AM CDT) ALT 42(H) 6 - 29 U/L [facility] Blood BLOOD SPECIMEN / Unknown 06/18/2024 8:57 AM CDT 06/18/2024 8:58 AM CDT Narrative [facility] - 06/19/2024 3:00 AM CDT FASTING:YES FASTING: YES Armand Abel MD CHEMISTRY Final Resu lt [facility] [address] [place] [address], [facility] [address] [place] [address] * HEDDLER TIER THIN PREP PAP SCREEN IMAGED (10/07/2019 4:00 PM PHARMACY PICKING TECH) Case Report Gynecologic Cytology Report Case: [id number] Authorizing Provider: Ghada Paige NP Collected: 10/07/2019 1600 Ordering Location: [facility] Received: 10/07/2019 1621 Clinic First Screen: Yaneth Laird Specimen: HEDDLER TIER ThinPrep Vial Screening, Cervical 10/17/2019 1:14 PM PHARMACY PICKING TECH [facility]AL [facility]AT[facility] INTERPRETATION/ RESULT NEGATIVE FOR INTRAEPITHELIAL LESION OR MALIGNANCY (NIL) (none) 10/17/2019 1:14 PM PHARMACY PICKING TECH [facility] IMEN ADEQUACY Satisfactory for evaluation Endocervical component present 10/17/2019 1:14 PM PHARMACY PICKING TECH [facility] HPV REQUEST HPV and PAP 10/17/2019 1:14 PM PHARMACY PICKING TECH [facility] Date of LMP Amenorrhea. 10/17/2019 1:14 PM PHARMACY PICKING TECH [facility] Last Pap Date Unknown 10/17/2019 1:14 PM PHARMACY PICKING TECH [facility] Last Pap Result First Pap/Unknown 1:14 PM PHARMACY PICKING TECH [facility] Abnormal Pap or [place] Bx in last 5 years No 10/17/2019 1:14 PM PHARMACY PICKING TECH [facility] Menstrual Status Irregular Periods 10/17/2019 1:14 PM PHARMACY PICKING TECH [facility] [place] Bx Done Today No 10/17/2019 1:14 PM PHARMACY PICKING TECH [facility] Additional Information None given 10/17/2019 1:14 PM PHARMACY PICKING TECH [facility] Comment: Cytology is screened at [facility] - [address], [place] [address] [address] [facility] - [address], [place] [address] and [facility] - [address] [place] [address] Interpreted at [facility] - [address], [place] [address] Automated Review Successful 10/17/2019 1:14 PM PHARMACY PICKING TECH [facility] Comment:Specimen processed s uccessfully by automated colon therapist device, ThinPrep Imaging System, [employer] ANCILLARY TESTING HEDDLER TIER HPV Ordered, Please see separate report 10/17/2019 1:14 PM PHARMACY PICKING TECH [facility] Note The pap test is a screening technique, not a diagnostic procedure. It is used primarily to screen for squamous cancers and precursor lesions. Published studies have shown that it is subject to both false negative and false positive results. The pap test should not be used as the sole means to diagnose or exclude pre-malignant and malignant lesions. 10/17/2019 1:14 PM PHARMACY PICKING TECH [facility] Other (Cervical) Non-Blood / Unknown 10/07/2019 4:00 PM PHARMACY PICKING TECH 10/07/2019 4:21 PM PHARMACY PICKING TECH Ghada Paige NP PATHOLOGY/CYTOLOGY Final Result [facility] [address] [place] [address], [place] * ANTI HCV (06/30/2019 3:56 PM PHARMACY PICKING TECH) HEPATITIS C ANTIBODY Non-React mirela Non-React mirela 07/01/2019 3:37 PM PHARMACY PICKING TECH [facility] Comment:Antibodies to HCV no t detected; does not exclude the possibility of exposure to HCV. Blood BLOOD SPECIMEN / Unknown Venipuncture / Unknown 06/30/2019 3:56 PM PHARMACY PICKING TECH 06/30/2019 3:56 PM PHARMACY PICKING TECH us Ghada Paige [employer] INTER[employer] SEND OUTS Final Res ult [facility] [address] [place] [address], [place] from Last 3 Months or Most Recently Relevant to Health Maintenance Insurance [email or web address] MEDICARE ADVANTAGE MEDICARE PART A HB ONLY Advance Directives * Full Code (Latest Code Status on File) Date Activated Date Inactivated Comments 03/11/2024 12:41 PM 03/11/2024 3:58 PM Question Answer Comments Code Status Discussion: Other Care Teams Ship Laborer Relationship Specialty Start Date End Date Benjamin Greenfield MD [address] [place] [address] PCP - General Family Practice 11/27/22 Armand Abel MD [address] [facility] [address] [place] [address] Endocrinology Endocrinology 09/04/22 Dennis Miranda MD [address] [facility] [address] [place] [address] Cardiology Cardiovascular Disease 07/20/24
[2024-09-11 19:57] VITALS: BP 148/84; PULSE 108; RESP 24; TEMP 37.2; O2SAT 97; BMI 51.4
--- NOTE | 2024-09-11 20:01 | ED.GENADULT ---
HPI - General Adult General Chief complaint: Abdominal Pain Stated complaint: Pain in RT lower abdomen and back, sent by [facility] Time Seen by Provider: 09/11/24 20:01 History of Present Illness HPI narrative: Pt arrives ambulatory into triage for further work up of RLQ pain w/ radiation into her low back. Pain began Saturday. Was at the [facility] in [place] - told she has an elevated WBC, urine neg, and x-ray neg for constipation. Denies fevers. Denies hx of abdominal surgery. 64-year-old woman presenting to the emergency department with complaint of persistent pain in the right inguinal area now. Not affected by ambulation. She describes it is a constant ache. Further questioning it sounds like it actually began in her upper right back. She does have chronic arthritic related back pain. This is now been going on for 5 days. Seen 3 days ago where suggestion was perhaps that this was radicular back pain. She does have some low back pain but not mid back pain historically vanc. Now she has been constipated not having had much more than a few very small BMs over the last 3 days. Underlying history of Graves and is anticipating soon thyroidectomy. Was noted to have an elevated white count? which on review of record looks to be 11.2 and urine was noted normal. X-ray was done and looks to have been unremarkable. She has not had a fever. She is not nauseated. Apparently no abdominal surgeries. Related Data Home Medications ?Medication ?Instructions ?Recorded ?Confirmed albuterol sulfate 90 mcg/actuation g inhalation 05/17/22 05/26/24 aerosol inhaler amlodipine 10 mg tablet 10 mg PO 05/17/22 05/26/24 atenolol 25 mg tablet 25 mg PO 05/17/22 05/26/24 cetirizine 10 mg tablet 10 mg PO 05/17/22 05/26/24 famotidine 20 mg tablet 20 mg PO QDAY 05/17/22 05/26/24 fluticasone propionate 110 g inhalation 05/17/22 05/26/24 mcg/actuation HFA aerosol inhaler (Flovent HFA) furosemide 20 mg tablet 20 mg PO QDAY 05/17/22 05/26/24 losartan 100 mg tablet 100 mg PO 05/17/22 05/26/24 methimazole 10 mg tablet See Rx Instructions .Route .COMPLEX 05/17/22 05/26/24 montelukast 10 mg tablet 10 mg PO 05/17/22 05/26/24 potassium chloride 10 mEq ea PO 05/17/22 05/26/24 tablet,extended release triamterene 37.5 1 tab PO 05/17/22 05/26/24 mg-hydrochlorothiazide 25 mg tablet rivaroxaban 20 mg tablet (Xarelto) 20 mg PO DAILY 05/26/24 05/26/24 rosuvastatin 10 mg tablet 10 mg PO QPM 05/26/24 05/26/24 Allergies Allergy/AdvReac Type Severity Reaction Status Date / Time No Known Drug Allergies Allergy Verified 09/11/24 20:00 Review of Systems Status of ROS: Reports: 6 or more systems reviewed and unremarkable except as noted in History and below [facility] Medical History Cough ?R05.9 - Cough, unspecified (ICD-10) Acute maxillary sinusitis ?J01.00 - Acute maxillary sinusitis, unspecified (ICD-10) 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 (ICD-10) Surgical History History of arthroscopy of right knee ?Z98.890 - Other specified postprocedural states (ICD-10) H/O arthroscopy of left knee (01/25/10) ?Z98.890 - Other specified postprocedural states (ICD-10) Family History Family/Other Diabetes High blood pressure Father Heart problem Mother Heart problem Social History Narrative: 11 siblings Smoking Status: Never smoker Do you use any of these nicotine containing products: None Second hand tobacco smoke exposure: No How often do you have a drink containing alcohol: never AUDIT-C Alcohol total score: 0 Non-prescribed substance use: denies use Exam Narrative: Exam Narrative: Pleasant. NAD. Breathing easily. Proptosis. Transitions without notable difficulty. Flexes her thighs without increasing pain. Left leg with an orthotic about the ankle. Abdomen is obese soft and nontender. Does not really have pain to palpation of the ligamentous structures of the groin either. Sore to palpation over the right sacral iliac joint. Heart in elevated rate and regular rhythm. Lungs are clear Const: Vital Signs, click to edit/add: Vital Signs - 24 hr 09/11/24 19:57 Temperature 98.9 F Pulse Rate [Pulse Oximeter] 108 H Respiratory Rate 24 Blood Pressure [Ri ght Upper Arm] 148/84 H Pulse Oximetry 97 Oxygen Delivery Me thod Room Air Documenting provider has reviewed patient's vital signs: yes Course Vital Signs Vital signs: Initial Vital Signs Temperature 98.9 F 09/11/24 19:57 Temperature Source Temporal Artery Scan 09/11/24 19:57 Pulse Rate 108 H 09/11/24 19:57 Pulse Rhythm Regular 09/11/24 19:57 Pulse Strength 3+ Normal 09/11/24 19:57 Respiratory Rate 24 09/11/24 19:57 Blood Pressure 148/84 H 09/11/24 19:57 Blood Pressure Mean 105 09/11/24 19:57 Blood Pressure Position Sitting 09/11/24 19:57 Pulse Oximetry 97 09/11/24 19:57 Oxygen Delivery Method Room Air 09/11/24 19:57 Vital Signs Temperature 98.9 F 09/11/24 19:57 Pulse Rate 108 H 09/11/24 19:57 Respiratory Rate 24 09/11/24 19:57 Blood Pressure 148/84 H 09/11/24 19:57 Pulse Oximetry 97 09/11/24 19:57 Oxygen Delivery Method Room Air 09/11/24 19:57 Temperature 98.9 F 09/11/24 19:57 Pulse Rate 108 H 09/11/24 19:57 Respiratory Rate 24 09/11/24 19:57 Blood Pressure 148/84 H 09/11/24 19:57 Pulse Oximetry 97 09/11/24 19:57 Oxygen Delivery Method Room Air 09/11/24 19:57 Medical Decision Making MDM Narrative Medical decision making narrative: Differential here think in spite of ?normal? urinalysis would include ureteral stone. Also appendicitis. Unlikely ovarian issue. Evaluation have not been noted to be positive for any infection like urinary tract, other than this elevated white count no more recently. I doubt radicular back pain. Diverticulitis also is in differential. Appendicitis as well though again not very reproducible. I am unable to clearly reproduce this pain so I think less likely it is to be hip flexor related or musculoskeletal. Will repeat lab work and I think will be acceptable to do a non-contrasted CT considering body habitus of abdomen and pelvis. She does not feel needs any treatment for pain or nausea. CT abdomen pelvis dependently reviewed by me - I am unable to appreciate any acute abnormality. More specifically per concern, do not see evidence of appendicitis. Radiology over-read below Indication: Right inguinal pain, possible ureteral stone Technique: Noncontrast CT through the abdomen and pelvis with multiplanar reformats. Comparison: CT abdomen pelvis performed 10/09/2019 Findings: Portions of the examination are mildly degraded by motion. Lower chest: No acute abnormality appreciated. Hepatobiliary: No significant parenchymal abnormality is appreciated. Cholelithiasis. Spleen: Unremarkable. Pancreas: No acute abnormality appreciated. Adrenal glands: No acute abnormality appreciated. Kidneys: No significant parenchymal abnormality appreciated. No visualized calculi. No hydronephrosis. Bowel: No obstruction. No focal perienteric or pericolonic stranding is appreciated. Vascular: Poorly evaluated on this noncontrast examination. Lymph nodes: No gross lymphadenopathy. Peritoneum: No free air. No free fluid. : No acute abnormality appreciated. Soft tissues: No acute abnormality appreciated. Bones: No acute fracture. No lytic or blastic lesion. Degenerative changes of the spine and pelvis. Impression: 1. Allowing for mild motion degradation, no acute abnormality is appreciated. 2. Cholelithiasis. Discussed these findings with Ms. Gleason and her daughter. Question was raised of potential over concern or perseveration. This might be playing a role but CT imaging at least is reassuring. Cholelithiasis is noted but I think unrelated to her pain Possibly cystitis but would wait for culture to treat See patient discharge plan for further discussion For hard stool, would consider placing an enema. Repeat in an hour if no good result. If hard stool is not the issue but you still think you are constipated then could continue with the docusate and senna product you showed me, taking temporarily even 2 tabs twice a day. Can also continue with MiraLax dosing a couple of times a day in 8 oz of liquid. For bowel cleanout otherwise would drink a bottle of magnesium citrate and repeat the next day if no good result. A urine culture will be pending here. We will call you if it looks like you might benefit from treatment with an antibiotic. Medical Records Medical records reviewed: Yes I reviewed the patient's medical records Lab Data Lab results reviewed: Yes I reviewed the patient's lab results Labs: Lab Results 09/11/24 09/11/24 09/11/24 Range/Units 20:37 20:43 21:24 WBC 10.48 (4.50-11.00) K/uL RBC 4.93 (4.00-5.20) m/uL Hgb 13.1 (12.0-16.0) gm/dL Hct 39.8 (33.0-51.0) % MCV 81 (80-100) fL MCH 27 (26-34) pg MCHC 33 (32-36) gm/dL RDW Coeff of Yanni 15.7 H (11.5-15.5) % Plt Count 215 (140-440) K/uL Neut % (Auto) 77.7 H (42.0-72.0) % Lymph % (Auto) 15.7 L (20-44) % Ballard % (Auto) 5.9 (0.0-11.0) % Eos % (Auto) 0.2 (0.0-7.0) % Baso % (Auto) 0.3 (0.0-3.0) % Neut # (Auto) 8.10 H (1.7-7.0) K/uL Lymph # (Auto) 1.60 (0.90-2.90) K/uL Ballard # (Auto) 0.60 (0.00-0.90) K/UL Eos # (Auto) 0.02 (0.00-0.50) K/uL Baso # (Auto) 0.03 (0.00-0.30) K/uL Abs Immat Gran (auto) 0.02 (0.00-0.30) K/uL Imm/Tot Granulo (auto) 0.2 % Sodium 136 (135-149) mmol/L Potassium 3.6 (3.6-5.1) mmol/L Chloride 105 (96-114) mmol/L Carbon Dioxide 17 L (20-32) mmol/L Anion Gap 14 (7-15) mEq/L BUN 11 (7-30) mg/dL Creatinine 0.7 (0.5-1.5) mg/dL Estimated Creat Clear 46.40 Estimated GFR 96 ml/min Glucose 137 H (60-115) mg/dL Calcium 9.6 (8.4-10.6) mg/dL Total Bilirubin 0.6 (0.1-1.5) mg/dL Direct Bilirubin 0.3 (0.0-0.5) mg/dL AST 25 (12-35) U/L ALT 25 (4-35) U/L Alkaline Phosphatase 106 (40-150) U/L Total Protein 7.3 (6.0-8.3) g/dL Albumin 4.2 (3.3-5.0) g/dL Urine Color Yellow (Yellow) Urine Appearance Clear (Clear) Urine pH 6.0 (5.0-8.5) Ur Specific Longs 1.015 (1.000-1.030) Urine Protein Negative (Negative) Urine Glucose (UA) Negative (Negative) Urine Ketones Negative (Negative) Urine Blood Negative (Negative) Urine Nitrite Negative (Negative) Urine Bilirubin Negative (Negative) Urine Urobilinogen 0.2 (0.2-1.0) Ur Leukocyte Esterase 1+ A (Negative) Urine RBC 0-2 (0-2) Urine WBC 10-25 A (0-5) Ur Squamous Epith Cells Few (None-Few) Urine Bacteria None (None) Lab Acknowledgement Test Added Discharge Plan Discharge Clinical Impression: Abdominal pain, right lower quadrant Patient Disposition: Home w/ Parent or Adult Condition: Stable Additional Instructions: For hard stool, would consider placing an enema. Repeat in an hour if no good result. If hard stool is not the issue but you still think you are constipated then could continue with the docusate and senna product you showed me, taking temporarily even 2 tabs twice a day. Can also continue with MiraLax dosing a couple of times a day in 8 oz of liquid. For bowel cleanout otherwise would drink a bottle of magnesium citrate and repeat the next day if no good result. A urine culture will be pending here. We will call you if it looks like you might benefit from treatment with an antibiotic. Prescriptions: No Action methimazole 10 mg tablet See Rx Instructions .ROUTE .COMPLEX Rx Instructions: 2 tabs AM, 1 tab PM; losartan 100 mg tablet 100 mg PO furosemide 20 mg tablet 20 mg PO QDAY Patient Comments: TAKE 1 TABLET BY MOUTH ONCE DAILY. FOR BLOOD PRESSURE/FLUID. montelukast 10 mg tablet 10 mg PO triamterene-hydrochlorothiazid 37.5-25 mg tablet 1 tab PO famotidine 20 mg tablet 20 mg PO QDAY Patient Comments: TAKE 1 TABLET BY MOUTH ONCE DAILY. FOR REFLUX. atenolol 25 mg tablet 25 mg PO Patient Comments: TAKE 1 TABLET BY MOUTH EVERY DAY potassium chloride 10 mEq tablet extended release PO Patient Comments: TAKE 2 TABLETS BY MOUTH ONCE DAILY WITH A MEAL. FOR POTASSIUM DUE TO MEDS. amlodipine 10 mg tablet 10 mg PO Patient Comments: TAKE 1 TABLET BY MOUTH EVERY DAY FOR BLOOD PRESSURE cetirizine 10 mg tablet 10 mg PO Patient Comments: TAKE 1 TABLET BY MOUTH ONCE DAILY. FOR ALLERGIES. albuterol sulfate 90 mcg/actuation HFA aerosol inhaler inhalation Patient Comments: INHALE 1-2 PUFFS BY MOUTH EVERY 4 HOURS IF NEEDED FOR SHORTNESS OF BREATH 1ST CHOICE. fluticasone propionate [Flovent HFA] 110 mcg/actuation HFA aerosol inhaler inhalation Patient Comments: INHALE 1 PUFF BY MOUTH 2 TIMES DAILY. USE NEEDED FOR ASTHMA FLARE. Xarelto 20 mg tablet 20 mg PO DAILY rosuvastatin 10 mg tablet 10 mg PO QPM Follow Up/Referrals: Benjamin Greenfield MD [Primary Care Provider] - Stand Alone Forms: [employer] Info Instructions
--- NOTE | 2024-09-11 20:20 | CRLHL7_ITS ---
For Patients: As a result of the Century Cures Act, medical imaging exams and procedure reports are released immediately into your electronic medical record. You may view this report before your referring provider. If you have questions, please contact your health care provider. Indication: Right inguinal pain, possible ureteral stone Technique: Noncontrast CT through the abdomen and pelvis with multiplanar reformats. Comparison: CT abdomen pelvis performed 10/09/2019 Findings: Portions of the examination are mildly degraded by motion. Lower chest: No acute abnormality appreciated. Hepatobiliary: No significant parenchymal abnormality is appreciated. Cholelithiasis. Spleen: Unremarkable. Pancreas: No acute abnormality appreciated. Adrenal glands: No acute abnormality appreciated. Kidneys: No significant parenchymal abnormality appreciated. No visualized calculi. No hydronephrosis. Bowel: No obstruction. No focal perienteric or pericolonic stranding is appreciated. Vascular: Poorly evaluated on this noncontrast examination. Lymph nodes: No gross lymphadenopathy. Peritoneum: No free air. No free fluid. : No acute abnormality appreciated. Soft tissues: No acute abnormality appreciated. Bones: No acute fracture. No lytic or blastic lesion. Degenerative changes of the spine and pelvis. Impression: 1. Allowing for mild motion degradation, no acute abnormality is appreciated. 2. Cholelithiasis. Please note that all CT scans at this facility use dose modulation, iterative reconstruction, and/or weight-based dosing when appropriate to reduce radiation dose to as low as reasonably achievable. Dictated by Félix Brooks MD @ 09/11/2024 9:14:56 PM (Electronically Signed)
[2024-09-11 20:42] LABS: Appearance Urine Clear (Clear); Bilirubin Urine Negative (Negative); Blood Urine Negative (Negative); Color Urine Yellow (Yellow); Glucose Urine Negative (Negative); Ketones Urine Negative (Negative); Leukocyte Esterase Urine 1+ (Negative); Nitrite Urine Negative (Negative); Protein Urine Negative (Negative); Specific Gravity Urine 1.015 (1.000-1.030); Urobilinogen Urine 0.2 (0.2-1.0)
[2024-09-11 20:51] LABS: Basophils Absolute Auto 0.03 K/uL (0.00-0.30); Basophils Percent Auto 0.3 % (0.0-3.0); Eosinophils Absolute Auto 0.02 K/uL (0.00-0.50); Eosinophils Percent Auto 0.2 % (0.0-7.0); Hematocrit 39.8 % (33.0-51.0); Hemoglobin* 13.1 gm/dL (12.0-16.0); Immature Granulocytes Abs Auto 0.02 K/uL (0.00-0.30); Immature Granulocytes Pct Auto 0.2 %; Lymphocytes Percent Auto 15.7 % (20-44); Mean Corpuscular HGB Conc 33 gm/dL (32-36); Mean Corpuscular Hemoglobin 27 pg (26-34); Mean Corpuscular Volume 81 fL (80-100); Monocytes Percent Auto 5.9 % (0.0-11.0); Neutrophils Percent Auto 77.7 % (42.0-72.0); Platelet Count* 215 K/uL (140-440); RDW Coefficient of Variation % 15.7 % (11.5-15.5); Red Blood Count 4.93 m/uL (4.00-5.20); White Blood Count* 10.48 K/uL (4.50-11.00)
[2024-09-11 20:55] LABS: Slide Review Reflex No
[2024-09-11 20:59] LABS: RBC Urine 0-2 (0-2); Squamous Epithelial Cell Urine Few (None-Few)
[2024-09-11 21:05] LABS: Chloride* 105 mmol/L (96-114); Potassium* 3.6 mmol/L (3.6-5.1); Sodium* 136 mmol/L (135-149)
[2024-09-11 21:08] LABS: Anion Gap 14 mEq/L (7-15); Blood Urea Nitrogen* 11 mg/dL (7-30); Carbon Dioxide* 17 mmol/L (20-32); Creatinine* 0.7 mg/dL (0.5-1.5); Estimated Glomerular Filt Rate 96 ml/min; Glucose* 137 mg/dL (60-115)
[2024-09-11 21:09] LABS: Calcium* 9.6 mg/dL (8.4-10.6)
[2024-09-11 21:35] LABS: Albumin* 4.2 g/dL (3.3-5.0)
[2024-09-11 21:38] LABS: Alkaline Phosphatase* 106 U/L (40-150); Aspartate Amino Transferase* 25 U/L (12-35); Bilirubin Direct* 0.3 mg/dL (0.0-0.5); Bilirubin Total* 0.6 mg/dL (0.1-1.5); Total Protein* 7.3 g/dL (6.0-8.3)
[2024-09-11 21:39] LABS: Alanine Aminotransferase* 25 U/L (4-35)
--- OUTSIDE RECORDS SUMMARY | 2024-09-11 22:07 | XMS_ITS | Clinical Summary ---
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
--- OUTSIDE RECORDS SUMMARY | 2024-09-11 22:07 | XMS_ITS | Referral Summary ---
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
--- OUTSIDE RECORDS SUMMARY | 2024-09-11 22:08 | XMS_ITS | Clinical Summary ---
Author Organization [facility] Address [place], [place] [address] Care Team Providers Care Medical Records Receptionist Name Role Phone Armand Abel MD Unavailable [phone] Benjamin Greenfield MD Primary Care Provider [phone] Dennis Miranda MD Unavailable [phone] Allergies No known active allergies Medications ypinahxl-tzq-vvlk -FA-lutein (Centrum Silver Women) 8 mg iron-400 [...] Department Care Team Description 09/11/2024 6:00 PM CRUSHER [facility] [address] [facility] [address] [place] [address] Arrived 09/11/2024 5:55 PM CRUSHER Ancillary Procedure [facility] [address] [facility] [address] [place] [address] Arrived 09/11/2024 5:05 PM CRUSHER Office Visit [facility] [address] [facility] [address] [place] [address] Debi Gamboa NP Abdominal Pain (lower abdominal pain on right side x5days, was checked for a uti x3days. pain does wrap around to the back as well. Pain is a constant ache that is worsening, since her last visit she is now having constipation, denies blood in stool. ) 09/11/2024 Travel 09/09/2024 2:00 PM CRUSHER Ancillary Procedure [facility] [address] [place] [address] Arrived 09/09/2024 1:00 PM CRUSHER Office Visit [facility] [address] [place] [address] Kuldip Saul MD Sleep Follow-up 09/08/2024 9:40 AM CRUSHER Office Visit [facility] [address] [place] [address] Vinicio Zapata MD Back Pain 09/08/2024 Travel 09/07/2024 Travel 09/04/2024 12:35 PM CRUSHER Office Visit [facility] [address] [place] [address] Benjamin Greenfield MD Preoperative Exam (DOS: 10/01/2024 [facility]/Thyroidecto for diagnosis of Graves Disease/Dr Matty Zimmerman) 09/04/2024 Travel 08/31/2024 Travel 08/08/2024 9:10 AM CRUSHER Office Visit [facility] [address] [facility] [address] [place] [address] Caitlyn Call PA Cough 08/08/2024 Orders Only [facility] [place] [address] [place] [address] Caitlyn Call PA <No scans attached> 08/08/2024 Telephone [facility] [address] [place] [address] Caitlyn Call PA Medication Management (predniSONE ) 08/08/2024 Travel 08/06/2024 12:20 PM CRUSHER Telemedicine [facility] [address] [place] [address] Maile Del Valle MD Cough; Acid Indigestion; Telehealth 08/05/2024 Travel 07/27/2024 Orders Only [facility] [address] [place] [address] Benjamin Greenfield MD Lab 07/24/2024 Telephone [facility] [address] [place] [phone] Matty Zimmerman MD Surgery Scheduled (Total thyroidectomy) 07/23/2024 9:20 AM CRUSHER Office Visit [facility] [address] [place] [address] Matty Zimmerman MD Consult (Enlarged thyroid, nodules, Graves) 07/23/2024 Travel 07/21/2024 Telephone [facility] [address] [place] [address] Benjamin Greenfield MD Medication Management (fluticasone propionate (FLOVENT DISKUS) 100 mcg/actuation inhaler/) 07/20/2024 1:40 PM CRUSHER Ancillary Procedure [facility] [address] [place] [address] 07/20/2024 12:35 PM CRUSHER Office Visit [facility] [address] [place] [address] Benjamin Greenfield MD Medicare WELCOME Visit (AGE 63) 07/19/2024 Travel 07/18/2024 Travel 06/21/2024 Telephone [facility] [address] [place] [address] Armand Abel MD Results 06/21/2024 Orders Only [facility] [address] [place] [address] Armand Abel MD <No scans attached> 06/18/2024 8:20 AM CDT Office Visit [facility] [address] [place] [address] Armand Abel MD Follow Up (3 months [...] Heart Disease Mother bypass in 60's 2nd [place] in 80's Genetic Other 1 glaucoma - fath er~lazy eye - sister Genetic Other 2 mother [place] in he r 60's, HTN~brother CAD, stent placement age 42~sister DM2, HTN ~glaucoma - father~lazy eye - sister Genetic Other 3 mother [place] in he r 60's, HTN~Father had RA, [...] on file Legal Sex Female 5:38 AM CRUSHER Gender Identity Not on file Sexual Orientation Not on file Obstetrics History Last Filed Vital Signs Vital Sign Reading Time Taken Comments Blood Pressure 140/63 09/11/2024 5:25 PM CRUSHER Pulse 99 09/11/2024 5:25 PM CRUSHER Temperature 36.2 C (97.1 F) 09/11/2024 5:25 PM CRUSHER Respiratory Rate 22 09/11/2024 5:25 PM CRUSHER Oxygen Saturation 96% 09/11/2024 5:25 PM CRUSHER Inhaled Oxygen Concentration - - Weight 131.6 kg (290 lb 3.2 oz) 025 12:53 PM CRUSHER Height 161.4 cm (5' 3.54) 09/09/2024 1 2:53 PM CRUSHER Body Mass Index 50.54 09/09/2024 12:53 PM CRUSHER Plan of Treatment Upcoming Encounters Date Type Department Care Team (Latest Contact Info) Description 10/01/2024 7:20 AM CRUSHER Hospital Encounter [facility] [address] [place] [address] Matty Zimmerman MD 280 [facility] 700 [place] [address] 10/01/2024 7:20 AM CRUSHER - 10/01/2024 9:14 AM CRUSHER Surgery [facility] [address] [place] [address] Matty Zimmerman MD [address] [facility] [address] [facility] 700 [place], [place] [id number] Total thyroidectomy 11/05/2024 9:10 AM CDT Office Visit [facility] [address] [facility] 300 [place], [place] [id number] Armand Abel MD [address] [facility] [address] [facility] [address] [place] [address] Scheduled Procedures Name Priority Associated Diagnoses Date/Ti me THYROIDECTOMY Tier 4 Graves disease 10/01/2024 7:20 AM CRUSHER Health Maintenance Due Date Last Done Comments [...] UPRIGHT OR DECUBITUS STAT 09/11/2024 6:25 PM CRUSHER Flank pain Abdominal pain, RLQ (right lower quadrant) XR SPINE LUMBAR 3 VIEWS STAT 09/11/2024 6:24 PM CRUSHER Flank pain Abdominal pain, RLQ (right lower quadrant) [place] BLOOD COUNT COMPLETE AUTO&AUTO DIFRNTL WBC Routine 09/11/2024 6:01 PM CRUSHER Flank pain Abdominal pain, RLQ (right lower quadrant) UA W/ SEDIMENT EXAM REFLEXED PER CRITERIA STAT 09/11/2024 6:00 PM CRUSHER Flank pain Abdominal pain, RLQ (right lower quadrant) URINALYSIS MICROSCOPIC Routine 09/08/2024 10:04 AM CRUSHER Flank pain URINE CULTURE Routine 09/08/2024 10:04 AM CRUSHER Flank pain COMP METABOLIC PANEL Routine 09/08/2024 9:59 AM CRUSHER Flank pain URINALYSIS MACROSCOPIC - [facility] ONLY POC DIP ([facility]) Routine 09/08/2024 9:58 AM CRUSHER Flank pain HEMOGLOBIN Routine 09/04/2024 1:15 PM CRUSHER Preoperative examination POTASSIUM Routine 09/04/2024 1:15 PM CRUSHER Primary hypertension OCCULT BLOOD IFOBT STOOL Routine 07/21/2024 9:00 AM CRUSHER Screening for colon cancer TSH Routine 07/20/2024 2:41 PM CRUSHER Graves disease T4,FREE Routine 07/20/2024 2:41 PM CRUSHER Graves disease HEPATIC FUNCTION PANEL Routine 07/20/2024 2:41 PM CRUSHER Abnormal liver function test LIPID PANEL W REFLEX MEASURED LDL Routine 07/20/2024 2:39 PM CRUSHER Hypercholesterolemia HEMOGLOBIN A1C Routine 07/20/2024 2:39 PM CRUSHER Elevated fasting glucose BASIC METABOLIC PANEL Routine 07/20/2024 2:39 PM CRUSHER Primary hypertension XR MAMMO CARLA BILAT SCREEN Routine 07/20/2024 2:09 PM CRUSHER Encounter for screening mammogram for malignant neoplasm of breast TSH Routine 06/18/2024 8:57 AM CDT Hyperthyroidism T4,FREE Routine 06/18/2024 8:57 AM CDT Hyperthyroidism WHITE BLOOD COUNT Routine 06/18/2024 8:5 7 AM CDT Hyperthyroidism ALT (SGPT) Routine 06/18/2024 8:57 AM CDT Hyperthyroidism HANDBELL CHOIR DIRECTOR THIN PREP PAP SCREEN IMAGED Routine 10/07/2019 4:00 PM CRUSHER Pap smear for cervical cancer screening ANTI HCV Routine 06/30/2019 3:56 PM CRUSHER Encounter for hepatitis C screening test for low risk patient from Last 3 Months or Most Recently Relevant to Health Maintenance Results * XR ABDOMEN 2 VIEW FLAT AND UPRIGHT OR DECUBITUS (09/11/2024 6:25 PM CRUSHER) Anatomical Region Laterality Modality Abdomen Digital Radiogra phy 09/11/2024 7:11 PM CRUSHER Impressions 09/11/2024 7:11 PM CRUSHER No findings to explain the clinical history. Dictated by Blas Mckeon MD @ 09/11/2024 7:11:24 PM (Electronically Signed) Narrative 09/11/2024 7:11 PM CRUSHER For Patients: As a result of the [...] SPINE LUMBAR 3 VIEWS (09/11/2024 6:24 PM CRUSHER) Anatomical Region Laterality Modality LUMBAR SPINE Digital Radiogra phy 09/11/2024 7:12 PM CRUSHER Impressions 09/11/2024 7:12 PM CRUSHER No specific findings to explain the clinical history. Chronic multilevel lumbar spondylosis described above. Dictated by Blas Mckeon MD @ 09/11/2024 7:12:48 PM (Electronically Signed) Narrative 09/11/2024 7:12 PM CRUSHER For Patients: As a result of the [...] Final Result * (ABNORMAL) CBC & DIFF [44867.0] (09/11/2024 6:01 PM CRUSHER) WHITE BLOOD CELL COUNT 11.2(H) 3.8 - 10.8 Thousand/u L [facility] (Urgent [facility]) RED BLOOD CELL COUNT 5.04 3.80 - 5.10 Million/uL [facility]) HEMOGLOBIN 13.5 11.7 - 15.5 g/dL [facility] ([facility]) HEMATOCRIT 40.6 35.0 - 45.0 % [facility] ([facility]) MCV 80.6 80.0 - 100.0 fL [facility] (Urgent Care) MCH 26.8(L) 27.0 - 33.0 pg [facility] (Urgent Care) MCHC 33.3 32.0 - 36.0 g/dL [facility] (Urgent Care) Comment: For adults, a slight decrease in the calculated MCHC value (in the range of 30 to 32 g/dL) is most likely not clinically significant; however, it should be interpreted with caution in correlation with other red cell parameters and the patient's clinical condition. RDW 15.5(H) 11.0 - 15.0 % [facility]) PLATELET COUNT 246 140 - 400 Thousand/u L [facility] MPV 9.4 7.5 - 12.5 fL [facility] ABSOLUTE NEUTROPHILS 7,874(H) 1,500 - 7,800 cells/uL [facility] (Urgent Care) ABSOLUTE LYMPHOCYTES 2,542 850 - 3,900 cells/uL [facility]) ABSOLUTE MONOCYTES 706 200 - 950 cells/uL [facility]) ABSOLUTE EOSINOPHILS 56 15 - 500 cells/uL [facility]) ABSOLUTE BASOPHILS 22 0 - 200 cells/uL [facility]) NEUTROPHILS 70.3 % [facility]) LYMPHOCYTES 22.7 % [facility] ([facility]) MONOCYTES 6.3 % [facility] (Urgent Care) EOSINOPHILS 0.5 % [facility] BASOPHILS 0.2 % [facility] (Urgent Care) Blood BLOOD SPECIMEN / Unknown 09/11/2024 6:01 PM CRUSHER 09/11/2024 6:02 PM CRUSHER us Debi Gamboa NP HEMATOLOGY Final Result [facility] [address] [place] [address], [facility] [address] [place] [address] * (ABNORMAL) UA W/ SEDIMENT EXAM REFLEXED PER CRITERIA [78432.2] (09/11/2024 6:00 PM CRUSHER) COLOR YELLOW YELLOW [facility]) APPEARANCE CLEAR CLEAR [facility] SPECIFIC GRAVITY [...] URINE SPECIMEN / Unknown 09/11/2024 6:00 PM CRUSHER 09/11/2024 6:01 PM CRUSHER us Debi Gamboa NP URINE Final Result [facility] [address] [place] [address], [facility] (Urgent Care) [address] [place] [address] * URINALYSIS MICROSCOPIC (09/08/2024 10:04 AM CRUSHER) RBC 0-2 0-2, None Seen /HPF 09/08/2024 4:15 PM CRUSHER [facility] WBC 0-2 0-2, 3-5, None Seen /HPF 09/08/2024 4:15 PM CRUSHER [facility] BACTERIA None Seen None Seen, Rare, Few Bacteria/ HPF 09/08/2024 4:15 PM CRUSHER [facility] EPITHELIAL CELLS None Seen None Seen, Few Epi/HPF 09/08/2024 4:15 PM CRUSHER [facility] HYALINE CASTS 0-2 0-2, 3-5 /LPF 09/08/2024 4:15 PM CRUSHER [facility] Urine URINE SPECIMEN / Unknown Non-Blood / Unknown 09/08/2024 10:04 AM CRUSHER 09/08/2024 10:04 AM CRUSHER Vinicio Zapata MD URINE Final Result Performing Organization Address City/[facility]/ZIP Co de Phone Number [facility] [address] [phone], [place] * URINE CULTURE (09/08/2024 10:04 AM CRUSHER) CULTURE <10,000 CFU/mL multiple organisms 09/09/2024 1:42 PM CRUSHER [facility] Urine URINE SPECIMEN / Unknown Non-Blood / Unknown 09/08/2024 10:04 AM CRUSHER 09/08/2024 10:04 AM CRUSHER us Vinicio Zapata MD MICROBIOLOGY Final Result Performing Organization Address [facility]/ZIP Co de Phone Number [facility] [address] [place] [address], [place] * (ABNORMAL) COMP METABOLIC PANEL (09/08/2024 9:59 AM CRUSHER) Pathologist [facility] GLUCOSE 124(H) 65 - 99 mg/dL [facility] [...] BLOOD SPECIMEN / Unknown 09/08/2024 9:59 AM CRUSHER 09/08/2024 9:59 AM CRUSHER us Vinicio Zapata MD CHEMISTRY Final Result [facility] [address] [place] [address], [place] [phone] [facility] [address] [place] [address] * (ABNORMAL) POCT Urinalysis Dipstick Only (09/08/2024 9:58 AM CRUSHER) PH 7.0 5.0 - 8.0 [facility] SPECIFIC GRAVITY 1.015 1.001 - 1.035 [facility] GLUCOSE NEGATIVE NEGATIVE [facility] BILIRUBIN NEGATIVE NEGATIVE [facility] KETONES NEGATIVE NEGATIVE [facility] OCCULT BLOOD NEGATIVE NEGATIVE [facility] PROTEIN NEGATIVE NEGATIVE [facility] NITRITE NEGATIVE NEGATIVE [facility] LEUKOCYTE ESTERASE TRACE(A) NEGATIVE [facility] Urine URINE SPECIMEN / Unknown 09/08/2024 9:58 AM CRUSHER 09/08/2024 9:58 AM CRUSHER us Vinicio Zapata MD URINE Final Result Performing Organization Address [facility]/ZIP Co de Phone Number [place] [address] [place] [address], [facility] [address] [place] [address] * HEMOGLOBIN (09/04/2024 1:15 PM CRUSHER) HEMOGLOBIN 13.5 11.7 - 15.5 g/dL [facility] Blood BLOOD SPECIMEN / Unknown 09/04/2024 1:15 PM CRUSHER 09/04/2024 1:15 PM CRUSHER us Benjamin Greenfield MD HEMATOLOGY Final Res ult [facility] [address] [place] [address], [facility] [address] [place] [address] * (ABNORMAL) POTASSIUM (09/04/2024 1:15 PM CRUSHER) POTASSIUM 3.4(L) 3.5 - 5.3 mmol/L [facility] [facility] Blood BLOOD SPECIMEN / Unknown 09/04/2024 1:15 PM CRUSHER 09/04/2024 1:15 PM CRUSHER Benjamin Greenfield MD CHEMISTRY Final Res ult [facility] [address] [place] [address], [facility] [address] [place] [address] * OCCULT BLOOD IFOBT STOOL [[id number]] (07/21/2024 9:00 AM CRUSHER) STOOL BLOOD ,IFOBT Negative Negative 07/29/2024 3:47 PM CRUSHER [facility] Stool STOOL SPECIMEN / Unknown Non-Blood / Unknown 07/21/2024 9:00 AM CRUSHER 07/27/2024 11:35 PM CRUSHER Benjamin Greenfield MD LABORATORY Final Res ult [facility] [address] [place] [address], * (ABNORMAL) TSH (07/20/2024 2:41 PM CRUSHER) Only the most recent of2 resultswithin the time period is included. TSH 0.01(L) 0.40 - 4.50 mIU/L [facility] [facility] Blood BLOOD SPECIMEN / Unknown 07/20/2024 2:41 PM CRUSHER 07/20/2024 2:41 PM CRUSHER Armand Abel MD CHEMISTRY Final Resu lt Performing Organization Address [facility]/ZIP Co de Phone Number [facility] [address] [place] [address], [place] [phone] [facility] [address] [place] [address] * (ABNORMAL) T4,FREE (07/20/2024 2:41 PM CRUSHER) Only the most recent of2 resultswithin the time period is included. T4, FREE 2.2(H) 0.8 - 1.8 ng/dL [facility] Blood BLOOD SPECIMEN / Unknown 07/20/2024 2:41 PM CRUSHER 07/20/2024 2:41 PM CRUSHER Armand Abel MD CHEMISTRY Final Resu lt Performing Organization Address [facility] Co de Phone Number [facility] [facility] [address] [place] [address], [place] [phone] [facility] [address] [place] [address] * (ABNORMAL) HEPATIC FUNCTION PANEL (07/20/2024 2:41 PM CRUSHER) PROTEIN, TOTAL 6.5 6.1 - 8.1 g/dL [...] BLOOD SPECIMEN / Unknown 07/20/2024 2:41 PM CRUSHER 07/20/2024 2:41 PM CRUSHER Armand Abel MD CHEMISTRY Final Resu lt Performing Organization Address [facility]/ZIP Co de Phone Number [facility] [address] [place] [address], [facility] [address] [place] [address] * HEMOGLOBIN A1C (07/20/2024 2:39 PM CRUSHER) HEMOGLOBIN A1C 5.6 <5.7 % of total [...] diagnosis of diabetes in children. According to [place] Diabetes Association (ADA) guidelines, hemoglobin A1c <7.0% represents optimal control in non- diabetic patients. Different metrics may apply to specific patient populations. Standards of Medical Care in Diabetes(ADA). Blood BLOOD SPECIMEN / Unknown 07/20/2024 2:39 PM CRUSHER 07/20/2024 2:40 PM CRUSHER Narrative [facility] - 07/21/2024 3:31 AM CRUSHER FASTING:YES FASTING: YES Benjamin Greenfield MD CHEMISTRY Final Res ult Performing Organization Address City/[facility]/ZIP Co de Phone Number [facility] [address] [place] [address], [facility] [address] [place] [address] * (ABNORMAL) LIPID PANEL W REFLEX MEASURED LDL (07/20/2024 2:39 PM CRUSHER) CHOLESTEROL, TOTAL 132 <200 mg/dL [facility] [...] LDL-C. Bertram SS et al. WING. 2013;310(19): 6454-5960 (http://education.Engiver/faq/NPX109) CHOL/HDLC RATIO 2.8 <5.0 (calc) [facility] [facility] NON HDL CHOLESTEROL 84 <130 mg/dL (calc) [facility] Comment: For patients with diabetes plus 1 major ASCVD risk factor, treating to a non-HDL-C goal of <100 mg/dL (LDL-C of <70 mg/dL) is considered a therapeutic option. Blood BLOOD SPECIMEN / Unknown 07/20/2024 2:39 PM CRUSHER 07/20/2024 2:40 PM CRUSHER Narrative [facility] - 07/21/2024 5:34 AM CRUSHER FASTING:YES FASTING: YES us Benjamin Greenfield MD CHEMISTRY Final Res ult [facility] [address] [facility] [place] [address], [facility] [address] [place] [address] * (ABNORMAL) BASIC METABOLIC PANEL (07/20/2024 2:39 PM CRUSHER) GLUCOSE 131(H) 65 - 99 mg/dL [facility] Comment: Fasting reference interval For someone without known diabetes, a glucose value >125 mg/dL indicates that they may have diabetes and this should be confirmed with a follow-up test. UREA NITROGEN (BUN) 18 7 - 25 mg/dL [facility] CREATININE 0.85 0.50 - 1.05 mg/dL [facility] EGFR 76 > OR = 60 mL/min/1. 73m2 [facility] BUN/CREATININE RATIO SEE NOTE: 6 - 22 (calc) [facility] Comment: Not Reported: BUN and Creatinine are within reference range. SODIUM 139 135 - 146 mmol/L [facility] POTASSIUM 3.8 3.5 - 5.3 mmol/L [facility] CHLORIDE 104 98 - 110 mmol/L [facility] CARBON DIOXIDE 19(L) 20 - 32 mmol/L [facility] ELECTROLYTE BALANCE 16 7 - 17 mmol/L (calc) [facility] CALCIUM 9.2 8.6 - 10.4 mg/dL [facility] Blood BLOOD SPECIMEN / Unknown 07/20/2024 2:39 PM CRUSHER 07/20/2024 2:40 PM CRUSHER Narrative [facility] - 07/21/2024 5:34 AM CRUSHER FASTING:YES FASTING: YES Benjamin Greenfield MD CHEMISTRY Final Res ult [facility] [address] [place] [address], [facility] [address] [place] [address] * XR MAMMO CARLA BILAT SCREEN (07/20/2024 2:09 PM CRUSHER) Anatomical Region Laterality Modality BREASTS, Breast Left, Breast Right Bilateral Mammography Impressions 07/22/2024 4:01 PM CRUSHER There is no radiographic evidence for malignancy. Recommend annual mammograms. MAMMOGRAM ASSESSMENT: ACR 1 Negative PATIENTS: You will also receive a letter with your examination results in an easy to read format. If you have questions about your results, please contact your referring provider. Narrative 07/22/2024 4:01 PM CRUSHER For Patients: As a result of the Century Cures Act, medical imaging exams and procedure reports are released immediately into your electronic medical record. You may view this report before your referring provider. If you have questions, please contact your health care provider. XR MAMMO CARLA BILAT SCREEN [[id number]] CLINICAL HISTORY: This is an asymptomatic 63 y.o. patient. INDICATION FOR EXAM: Mammogram Screening. TECHNIQUE: CC & MLO views were obtained. This study was evaluated with the assistance of Computer-Aided Detection. Breast Tomosynthesis was used in interpretation. COMPARISON FILM: Yes 07/18/23 [facility] 05/11/21 [facility] FINDINGS: There are scattered areas of fibroglandular density. There are no dominant masses, suspicious micro calcifications or areas of architectural distortion. Benjamin Greenfield MD MAMMO Final Res ult * WHITE BLOOD COUNT (06/18/2024 8:57 AM CDT) WHITE BLOOD CELL COUNT 9.3 3.8 - 10.8 Thousand/u L [facility] Blood BLOOD SPECIMEN / Unknown 06/18/2024 8:57 AM CDT 06/18/2024 8:58 AM CDT Narrative [facility] - 06/19/2024 4:21 AM CDT FASTING:YES FASTING: YES us Armand Abel MD HEMATOLOGY Final Resu lt [facility] [address] [place] [address], [place] [phone] [facility] [address] [place] [address] * (ABNORMAL) ALT (SGPT) (06/18/2024 8:57 AM CDT) ALT 42(H) 6 - 29 U/L [facility] Blood BLOOD SPECIMEN / Unknown 06/18/2024 8:57 AM CDT 06/18/2024 8:58 AM CDT Narrative [facility] - 06/19/2024 3:00 AM CDT FASTING:YES FASTING: YES Armand Abel MD CHEMISTRY Final Resu lt [facility] [address] [place] [address], [facility] [address] [place] [address] * HANDBELL CHOIR DIRECTOR THIN PREP PAP SCREEN IMAGED (10/07/2019 4:00 PM CRUSHER) Case Report Gynecologic Cytology Report Case: [id number] Authorizing Provider: Ghada Paige NP Collected: 10/07/2019 1600 Ordering Location: [facility] Received: 10/07/2019 1621 Clinic First Screen: Yaneth Laird Specimen: HANDBELL CHOIR DIRECTOR ThinPrep Vial Screening, Cervical 10/17/2019 1:14 PM CRUSHER [facility] ENTRAL LABORAT[facility] INTERPRETATION/ RESULT NEGATIVE FOR INTRAEPITHELIAL LESION OR MALIGNANCY (NIL) (none) 10/17/2019 1:14 PM [facility] IMEN ADEQUACY Satisfactory for evaluation Endocervical component present 10/17/2019 1:14 PM [facility] HPV REQUEST HPV and PAP 10/17/2019 1:14 PM [facility] Date of LMP Amenorrhea. 10/17/2019 1:14 PM [facility] Last Pap Date Unknown 10/17/2019 1:14 PM [facility] Last Pap Result First Pap/Unknown 1:14 PM [facility] Abnormal Pap or [place] Bx in last 5 years No 10/17/2019 1:14 PM [facility] Menstrual Status Irregular Periods 10/17/2019 1:14 PM [facility] [place] Bx Done Today No 10/17/2019 1:14 PM [facility] Additional Information None given 10/17/2019 1:14 PM [facility] Comment: Cytology is screened at [facility] - [address], [place] [address] and [facility] - [address] [place] [address] and [facility] - [address] [place] [address] Interpreted at [facility] - [address], [place] [address] Automated Review Successful 10/17/2019 1:14 PM [facility] Comment:Specimen processed s uccessfully by automated coat finisher device, ThinPrep Imaging System, [employer] ANCILLARY TESTING HANDBELL CHOIR DIRECTOR HPV Ordered, Please see separate report 10/17/2019 1:14 PM [facility] Note The pap test is a screening technique, not a diagnostic procedure. It is used primarily to screen for squamous cancers and precursor lesions. Published studies have shown that it is subject to both false negative and false positive results. The pap test should not be used as the sole means to diagnose or exclude pre-malignant and malignant lesions. 10/17/2019 1:14 PM [facility] Other (Cervical) Non-Blood / Unknown 10/07/2019 4:00 PM [facility] 10/07/2019 4:21 PM [facility] Ghada Paige NP PATHOLOGY/CYTOLOGY Final Result [facility] [address] [place] [address], [place] * ANTI HCV (06/30/2019 3:56 PM [facility]) HEPATITIS C ANTIBODY Non-React mirela Non-React mirela 07/01/2019 3:37 PM [facility] Comment:Antibodies to HCV no t detected; does not exclude the possibility of exposure to HCV. Blood BLOOD SPECIMEN / Unknown Venipuncture / Unknown 06/30/2019 3:56 PM [facility] 06/30/2019 3:56 PM [facility] us Ghada Paige [employer] Final Res ult [facility] [address] [place] [address], [place] from Last 3 Months or Most Recently Relevant to Health Maintenance Insurance [employer] MEDICARE ADVANTAGE MEDICARE PART A HB ONLY Advance Directives * Full Code (Latest Code Status on File) Date Activated Date Inactivated Comments 03/11/2024 12:41 PM 03/11/2024 3:58 PM Question Answer Comments Code Status Discussion: Other Care Teams Medical Records Receptionist Relationship Specialty Start Date End Date Benjamin Greenfield MD [address] [place] [address] PCP - General Family Practice 11/27/22 Armand Abel MD [address] [facility] [address] [place] [address] Endocrinology Endocrinology 09/04/22 Dennis Miranda MD [address] [facility] [address] [place] [address] Cardiology Cardiovascular Disease 07/20/24
== END 2024-09-11 22:08 | disposition home or self-care (01) ==
LOC: ED 22:06
PROVIDERS: Emergency Provider Family Medicine; PCP Family Medicine
DX: R10.31 Right lower quadrant pain (principal)
CPT/HCPCS: 36415; 74176; 80048; 80076; 81001; 85025; 87086; 99284

== ENCOUNTER 2025-01-13 06:09 | Day surgery (SDC) | payer MEDICARE, SELFPAY ==
[2025-01-13 06:38] VITALS: BMI 52.0
[2025-01-13] MEDS: LIDOCAINE 1%-EPI 1:100,000 20 ML INFILTRATI (07:00)
[2025-01-13] MEDS: ETHYL CHLORIDE 1 APPLICATION 1 APPLIC TOPICAL (07:00)
[2025-01-13] MEDS: BUPIVACAINE 0.5% 30 ML INJECTION (07:00)
[2025-01-13 07:10] VITALS: BP 125/56; PULSE 66; RESP 14; O2SAT 100
[2025-01-13 07:14] VITALS: BP 124/57; PULSE 68; RESP 16; O2SAT 99
[2025-01-13 07:19] VITALS: BP 120/57; PULSE 67; RESP 16; O2SAT 100
[2025-01-13] MEDS: BACITRACIN OINTMENT BULK TUBE 1 APPLIC TOPICAL (07:23)
[2025-01-13 07:24] VITALS: BP 128/63; PULSE 66; RESP 18; O2SAT 100
--- NOTE | 2025-01-13 07:27 | P.ORPRC_ITS ---
Procedure Note Date of procedure: 01/13/25 Procedure: PREOPERATIVE DIAGNOSIS: 1. Right thumb flexor tenosynovitis - trigger thumb POSTOPERATIVE DIAGNOSIS: 1. Right thumb flexor tenosynovitis - trigger thumb PROCEDURE: 1. Right thumb flexor tendon sheath open release (A1 ld) SURGEON: Onesimo Holt MD. WRAPAROUND FACILITATOR: LOI Brice ANESTHESIA: Local anesthetic 6 mL via 50:50 mixture of 1% Lidocaine with epi and 0.5% marcaine plain EBL: 2mL IMPLANTS: None TOURNIQUET: None COMPLICATIONS: None evident INDICATIONS: The patient is a pleasant 64-year-old female who has experienced right thumb catching/triggering for number of months. It has progressively gotten worse. Given the failure of nonoperative management, and how this affects daily life, surgery was recommended. DESCRIPTION OF PROCEDURE: Following a thorough discussion of risks, benefits, and alternatives consent was obtained and the operative digit(s) was marked. The patient was brought to the operating room and placed supine on the operating table. Local anesthesia induction was undertaken in preop holding. No antibiotics were administered as this was planned to be a local case only. Proper time-out was performed identifying proper patient, site, and procedure. The operative extremity was prepped and draped in the appropriate sterile fashion using ChloraPrep. An incision was made on the palmar surface of the hand overlying the MCP joint region of the appropriate digit(s) respecting the palmar creases being cautious not to cross these perpendicularly. Sharp incision through the skin, and blunt dissection through subcutaneous tissue allowing protection of crossing neurologic structures. The A1 ld was visualized directly. It was incised sharply with a 15 blade. It was released completely from its distal to proximal extent under direct visualization. The tendon was inspected and found to be mildly striated consistent with some friction. Otherwise, it was intact. The tendon was removed out of the wound, and further inspected. The patient was asked to manually flex and extend the digits and showed no further catching. The catching, which was visualized initially, was no longer evident with reproduction of a manual fist and relaxation. Closure was performed with 4-O nylon in interrupted fashion. Soft dressings were applied, and the patient was transferred to the recovery room in stable condition. PLAN: 1. Encourage elevation of the operative extremity. 2. Range of motion of the fingers and hand/wrist as tolerated. 3. Ibuprofen/acetaminophen as needed for pain control. 4. Follow up with PA visit in 12-16 days for wound check and suture removal.
[2025-01-13 07:30] VITALS: BP 136/67; PULSE 62; RESP 18; TEMP 36.6; O2SAT 98
== END 2025-01-13 07:49 | disposition home or self-care (01) ==
PROVIDERS: PCP Family Medicine; Visit Provider Orthopaedic Surgery Sports Medicine
PROC: (CPT 26055; principal; 2025-01-13 07:15)
DX: M65.311 Trigger thumb, right thumb (principal); M65.841 Other synovitis and tenosynovitis, right hand
CPT/HCPCS: 26055; J0665